=== PATIENT | male | born 1945 | race Caucasian/White ===

== ENCOUNTER → 2016-06-11 | Outpatient (CLI) | payer MEDICARE, OTHER | END | disposition home or self-care (01) | LOC: RADPETMAIN 10:18 | DX: Z53.9 Procedure and treatment not carried out, unspecified reason (principal) ==

== ENCOUNTER 2016-07-25 17:36 | Inpatient (IN) | payer MEDICARE, OTHER ==
[2016-07-25 18:01] LABS: Glucose,Whole Blood 165 mg/dL (75-99)
[2016-07-25] MEDS ORDERED: ACETAMINOPHEN TAB 500 MG TAB PO STA (18:02)
[2016-07-25] MEDS ORDERED: IBUPROFEN 600 MG TAB PO STA (18:02)
--- NOTE | 2016-07-25 18:06 | ED ---
General Adult HPI - General Chief complaint: Fever Stated complaint: Fever Time Seen by Provider: 07/25/16 17:46 Source: patient, family, RN notes reviewed Mode of arrival: EMS Limitations: no limitations - History of Present Illness Initial comments: Patient is a pleasant 71-year-old male presenting to the emergency Department with fever and weakness. Onset of symptoms was yesterday. 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 Patient has had a cough for a couple of days. Patient started not feeling well yesterday. Patient went to [facility] this morning and diagnosed with fever. They did want to keep him however he left AGAINST MEDICAL ADVICE. Patient did have a fall today and was too weak to get in bed. Patient got in bed with family assistance. Patient later got up to use the restroom and was too weak to make it to the bathroom. He did make it with assistance however was too weak to get off the toilet. Patient is drowsy but easily arousable and appropriate. Patient denies head injury. Patient denies any specific complaints other than feeling weak and fatigued. - Related Data Home Medications Medication Instructions Recorded Confirmed Insulin Glargine [Lantus] 42 unit SQ BID 06/06/14 07/25/16 Losartan/Hydrochlorothiazide 1 tab PO HS 06/06/14 07/25/16 [Hyzaar 100-25 Tablet] Acetaminophen Tab [Tylenol Tab] 1,000 mg PO Q6HR PRN 07/25/16 07/25/16 Aspirin 81 mg PO DAILY 07/25/16 07/25/16 INSULIN LISPRO (humaLOG) [HumaLOG] See Protocol SQ TID 07/25/16 07/25/16 Levothyroxine Sodium [Synthroid] 25 mcg PO DAILY 07/25/16 07/25/16 Levothyroxine Sodium [Synthroid] 200 mcg PO DAILY 07/25/16 07/25/16 predniSONE 25 mg PO DAILY 07/25/16 07/25/16 Allergies Allergy/AdvReac Type Severity Reaction Status Date / Time codeine Allergy Confusion Verified 07/25/16 17:44 gabapentin [From Neurontin] Allergy Confusion Verified 07/25/16 17:44 Review of Systems ROS Statement: Those systems with pertinent positive or pertinent negative responses have been documented in the HPI. ROS Other: All systems not noted in ROS Statement are negative. Constitutional: Reports: fever, chills Eyes: Denies: eye pain ENT: Denies: ear pain Respiratory: Reports: cough. Denies: dyspnea Cardiovascular: Denies: chest pain Endocrine: Reports: fatigue Gastrointestinal: Denies: abdominal pain Genitourinary: Denies: dysuria Musculoskeletal: Denies: back pain Skin: Denies: rash Neurological: Reports: weakness Past Medical History Past Medical History: Chest Pain / Angina, CVA/TIA, Diabetes Mellitus, Hyperlipidemia, Hypertension, Renal Disease, Thyroid Disorder Additional Past Medical History / Comment(s): Peripheral neuropathy, stroke 7 weeks ago, no residual effects-hospitalized @[facility], stage 3 kidney disease History of Any Multi-Drug Resistant Organisms: None Reported Past Surgical History: Bowel Resection, Cholecystectomy, Hernia Repair Additional Past Surgical History / Comment(s): Whipple procedure Past Anesthesia/Blood Transfusion Reactions: No Reported Reaction Past Psychological History: Anxiety, Depression Smoking Status: Former smoker Past Alcohol Use History: Occasional Additional Past Alcohol Use History / Comment(s): quit smoking @age of 23, smoked for 13 yrs. Past Drug Use History: Unable to Obtain - Past Family History Mother Family Medical History: Cancer Additional Family Medical History / Comment(s): Lung Father Family Medical History: Cancer Additional Family Medical History / Comment(s): Lung Sister(s) Family Medical History: Cancer Additional Family Medical History / Comment(s): Breast General Exam Limitations: no limitations General appearance: in no apparent distress, other (Drowsy but arousable to voice and light touch) Head exam: Present: atraumatic, normocephalic Eye exam: Present: normal appearance, PERRL ENT exam: Present: normal oropharynx Neck exam: Present: normal inspection Respiratory exam: Present: normal lung sounds bilaterally Cardiovascular Exam: Present: regular rate, normal rhythm GI/Abdominal exam: Present: soft. Absent: distended, tenderness Extremities exam: Present: normal inspection, full ROM. Absent: tenderness Neurological exam: Present: alert, oriented X3. Absent: motor sensory deficit Psychiatric exam: Present: flat affect Skin exam: Present: normal color. Absent: rash Course Vital Signs 07/25/16 07/25/16 07/25/16 17:39 17:57 18:01 Temperature 102.8 F H 102.8 F H Pulse Rate 79 84 Respiratory 20 25 H 24 Rate Blood Pressure 177/81 164/77 O2 Sat by Pulse 91 L 91 L Oximetry 07/25/16 07/25/16 18:39 19:12 Temperature 102.8 F H Pulse Rate 85 86 Respiratory 20 18 Rate Blood Pressure 168/75 187/81 O2 Sat by Pulse 94 L 97 Oximetry EKG Findings - EKG Comments: EKG Findings:: Normal sinus rhythm at 86. MN 146. QRS 98. QT 336. QTc 402. Normal axis. Incomplete right bundle branch block. No acute ST change. Medical Decision Making - Medical Decision Making Patient reevaluated and resting comfortably in bed. Patient is more alert. Patient and family updated on results and plan. Case discussed with Dr. Hayden, who will admit for Dr. Zamora. Patient does not meet sepsis criteria as there is no source of infection. - Lab Data Result diagrams: 07/25/16 17:49 07/25/16 17:49 Lab Results 07/25/16 07/25/16 07/25/16 Range/Units 17:47 17:49 17:49 WBC 10.8 H (3.8-10.6) k/uL RBC 4.06 L (4.30-5.90) m/uL Hgb 12.9 L (13.0-17.5) gm/dL Hct 39.2 (39.0-53.0) % MCV 96.5 (80.0-100.0) fL MCH 31.8 (25.0-35.0) pg MCHC 33.0 (31.0-37.0) g/dL RDW 16.6 H (11.5-15.5) % Plt Count 275 (150-450) k/uL Neutrophils % 94 % Lymphocytes % 2 % Monocytes % 3 % Eosinophils % 0 % Basophils % 0 % Neutrophils # 10.1 H (1.3-7.7) k/uL Lymphocytes # 0.2 L (1.0-4.8) k/uL Monocytes # 0.3 (0-1.0) k/uL Eosinophils # 0.0 (0-0.7) k/uL Basophils # 0.0 (0-0.2) k/uL Anisocytosis Slight Macrocytosis Slight PT (9.0-12.0) sec INR (<1.1) APTT (22.0-30.0) sec Sodium 128 L (137-145) mmol/L Potassium 4.2 (3.5-5.1) mmol/L Chloride 95 L (98-107) mmol/L Carbon Dioxide 26 (22-30) mmol/L Anion Gap 7 mmol/L BUN 24 H (9-20) mg/dL Creatinine 1.13 (0.66-1.25) mg/dL Est GFR (MDRD) Af Amer >60 (>60 ml/min/1.73 sqM) Est GFR (MDRD) Non-Af >60 (>60 ml/min/1.73 sqM) Glucose 174 H (74-99) mg/dL POC Glucose (mg/dL) 165 H (75-99) mg/dL POC Glu Early Childhood Education Instructor ID [place] Plasma Lactic Acid Maldonado (0.7-2.0) mmol/L Calcium 8.5 (8.4-10.2) mg/dL Total Bilirubin 0.8 (0.2-1.3) mg/dL AST 61 H (17-59) U/L ALT 53 (21-72) U/L Alkaline Phosphatase 95 (38-126) U/L Total Protein 6.1 L (6.3-8.2) g/dL Albumin 3.3 L (3.5-5.0) g/dL Urine Color Urine Appearance (Clear) Urine pH (5.0-8.0) Ur Specific [place] (1.001-1.035) Urine Protein (Negative) Urine Glucose (UA) (Negative) Urine Ketones (Negative) Urine Blood (Negative) Urine Nitrite (Negative) Urine Bilirubin (Negative) Urine Urobilinogen (<2.0) mg/dL Ur Leukocyte Esterase (Negative) Urine RBC (0-5) /hpf Urine WBC (0-5) /hpf Ur Squamous Epith Cells (0-4) /hpf Urine Mucus (None) /hpf 07/25/16 07/25/16 07/25/16 Range/Units 17:49 17:49 18:30 WBC (3.8-10.6) k/uL RBC (4.30-5.90) m/uL Hgb (13.0-17.5) gm/dL Hct (39.0-53.0) % MCV (80.0-100.0) fL MCH (25.0-35.0) pg MCHC (31.0-37.0) g/dL RDW (11.5-15.5) % Plt Count (150-450) k/uL Neutrophils % % Lymphocytes % % Monocytes % % Eosinophils % % Basophils % % Neutrophils # (1.3-7.7) k/uL Lymphocytes # (1.0-4.8) k/uL Monocytes # (0-1.0) k/uL Eosinophils # (0-0.7) k/uL Basophils # (0-0.2) k/uL Anisocytosis Macrocytosis PT 10.3 (9.0-12.0) sec INR 1.0 (<1.1) APTT 22.4 (22.0-30.0) sec Sodium (137-145) mmol/L Potassium (3.5-5.1) mmol/L Chloride (98-107) mmol/L Carbon Dioxide (22-30) mmol/L Anion Gap mmol/L BUN (9-20) mg/dL Creatinine (0.66-1.25) mg/dL Est GFR (MDRD) Af Amer (>60 ml/min/1.73 sqM) Est GFR (MDRD) Non-Af (>60 ml/min/1.73 sqM) Glucose (74-99) mg/dL POC Glucose (mg/dL) (75-99) mg/dL POC Glu Early Childhood Education Instructor ID Plasma Lactic Acid Maldonado 1.9 (0.7-2.0) mmol/L Calcium (8.4-10.2) mg/dL Total Bilirubin (0.2-1.3) mg/dL AST (17-59) U/L ALT (21-72) U/L Alkaline Phosphatase (38-126) U/L Total Protein (6.3-8.2) g/dL Albumin (3.5-5.0) g/dL Urine Color Yellow Urine Appearance Cloudy (Clear) Urine pH 7.5 (5.0-8.0) Ur Specific [place] 1.013 (1.001-1.035) Urine Protein Trace H (Negative) Urine Glucose (UA) Trace H (Negative) Urine Ketones Negative (Negative) Urine Blood Negative (Negative) Urine Nitrite Negative (Negative) Urine Bilirubin Negative (Negative) Urine Urobilinogen <2.0 (<2.0) mg/dL Ur Leukocyte Esterase Negative (Negative) Urine RBC <1 (0-5) /hpf Urine WBC <1 (0-5) /hpf Ur Squamous Epith Cells <1 (0-4) /hpf Urine Mucus Rare H (None) /hpf - Radiology Data Radiology results: image reviewed (Chest x-ray shows no acute process) Disposition Clinical Impression: Fever, Weakness Disposition: ADMITTED IP TO THIS HOSP Referrals: Antonio Purdy MD [Primary Care Provider] - 1-2 days Time of Disposition: 19:49
[2016-07-25 18:22] LABS: Anisocytosis Slight; Basophils % (A) 0 %; CH 32.2; CHCM 33.6; Eosinophils % (A) 0 %; HCT 39.2 % (39.0-53.0); HDW 2.44; HGB 12.9 gm/dL (13.0-17.5); Luc % (Auto) 1; Lymphocytes # (A) 0.2 k/uL (1.0-4.8); Lymphocytes % (A) 2 %; MCH 31.8 pg (25.0-35.0); MCV 96.5 fL (80.0-100.0); Macrocytosis Slight; Mean Platelet Volume 8.2; Monocytes # (A) 0.3 k/uL (0-1.0); Monocytes % (A) 3 %; Neutrophils # (A) 10.1 k/uL (1.3-7.7); Neutrophils % (A) 94 %; RBC 4.06 m/uL (4.30-5.90); RDW 16.6 % (11.5-15.5); WBC 10.8 k/uL (3.8-10.6); WBC (Perox) 10.26
[2016-07-25 18:31] LABS: ALT 53 U/L (21-72); AST 61 U/L (17-59); Alkaline Phosphatase 95 U/L (38-126); Anion Gap 7 mmol/L; Blood Urea Nitrogen 24 mg/dL (9-20); Calcium 8.5 mg/dL (8.4-10.2); Carbon Dioxide 26 mmol/L (22-30); Chloride 95 mmol/L (98-107); Glucose 174 mg/dL (74-99); Non-African American GFR(MDRD) >60 (>60 ml/min/1.73 sqM); Potassium 4.2 mmol/L (3.5-5.1); Sodium 128 mmol/L (137-145); Total Bilirubin 0.8 mg/dL (0.2-1.3); Total Protein 6.1 g/dL (6.3-8.2)
[2016-07-25 18:35] LABS: Partial Thromboplastin Time 22.4 sec (22.0-30.0); Prothrombin Time 10.3 sec (9.0-12.0)
[2016-07-25] MEDS: SODIUM CHLORIDE 0.9% 500 ML IV SCH ×2 (18:38→20:24)
[2016-07-25 19:09] LABS: Appearance,Urine Cloudy (Clear); Bilirubin,Urine Negative (Negative); Glucose,Urine (UA) Trace (Negative); Ketones,Urine Negative (Negative); Leukocyte Esterase,Urine Negative (Negative); Mucus,Urine Rare /hpf; Nitrite,Urine Negative (Negative); PH, Urine 7.5 (5.0-8.0); Particle Count 8895; Protein,Urine Trace (Negative); RBC,Urine <1 /hpf (0-5); Specific Gravity,Urine 1.013 (1.001-1.035); Squamous Epithelial Cell,Urine <1 /hpf (0-4); UA Billing (MACRO vs. MICRO) MICRO; Urobilinogen,Urine <2.0 mg/dL (<2.0); WBC,Urine <1 /hpf (0-5)
--- NOTE | 2016-07-25 19:27 | XR ---
EXAMINATION TYPE: XR chest 2V DATE OF EXAM: 07/25/2016 7:13 PM COMPARISON: 06/06/2014 HISTORY: Altered mental status TECHNIQUE: Frontal and lateral views of the chest are obtained. FINDINGS: Heart and mediastinum are normal. Lungs are clear. Diaphragm is normal. There are chest le ads. Bony thorax is intact. IMPRESSION: Normal chest. No change.
[2016-07-25] MEDS ORDERED: NALOXONE 0.4 MG/ML 1 ML VIAL IV PRN (19:49)
[2016-07-25] MEDS ORDERED: IBUPROFEN 400 MG TAB PO PRN (19:49)
[2016-07-25] MEDS ORDERED: ACETAMINOPHEN TAB 325 MG TAB PO PRN (19:49)
[2016-07-25 21:12] LABS: Glucose,Whole Blood 176 mg/dL (75-99)
[2016-07-25] MEDS ORDERED: ALPRAZolam 0.25 MG TAB PO PRN (21:46)
[2016-07-25] MEDS ORDERED: IV VANCOMYCIN PER PHARMACY 1 EACH MISC MISCELLANE PRN (21:54)
[2016-07-25 22:17] LABS: ALT 58 U/L (21-72); AST 80 U/L (17-59); Alkaline Phosphatase 88 U/L (38-126); Anion Gap 7 mmol/L; Blood Urea Nitrogen 25 mg/dL (9-20); Calcium 7.9 mg/dL (8.4-10.2); Carbon Dioxide 25 mmol/L (22-30); Chloride 97 mmol/L (98-107); Glucose 187 mg/dL (74-99); Non-African American GFR(MDRD) >60 (>60 ml/min/1.73 sqM); Sodium 129 mmol/L (137-145); Total Protein 5.6 g/dL (6.3-8.2)
[2016-07-25] MEDS: SODIUM CHLORIDE 0.9% 1,000 ML IV SCH (22:35)
[2016-07-25] MEDS: CEFEPIME 2 GM in SODIUM CHLORIDE 0.9% 50 ML IVPB SCH (22:35)
[2016-07-25] MEDS: HEPARIN SODIUM,PORCINE 5,000 UNIT/ML 1 ML VIAL SQ SCH (22:38)
[2016-07-25 22:58] VITALS: BMI 30.7
[2016-07-25] MEDS ORDERED: VANCOMYCIN 1,250 MG in SODIUM CHLORIDE 0.9% 250 ML IVPB ONE (23:00)
[2016-07-26] MEDS: LEVOTHYROXINE 100 MCG TAB PO SCH (06:21)
[2016-07-26] MEDS: LEVOTHYROXINE 25 MCG TAB PO SCH (06:21)
[2016-07-26 07:11] LABS: Glucose,Whole Blood 306 mg/dL (75-99)
[2016-07-26] MEDS: SODIUM CHLORIDE 0.9% 1,000 ML IV SCH ×4 (07:32→21:28)
[2016-07-26] MEDS: CEFEPIME 2 GM in SODIUM CHLORIDE 0.9% 50 ML IVPB SCH ×3 (07:37→23:31)
[2016-07-26] MEDS: INSULIN LISPRO (humaLOG) 300 UNIT/3 ML VIAL SQ SCH ×4 (07:40→21:20)
[2016-07-26] MEDS: HEPARIN SODIUM,PORCINE 5,000 UNIT/ML 1 ML VIAL SQ SCH ×2 (07:42→21:19)
--- NOTE | 2016-07-26 07:42 | HP ---
DATE OF ADMISSION: DATE OF SERVICE: 07/25/2016 The chief complaints are fever and weakness. HISTORY OF PRESENT ILLNESS: This is a 71-year-old gentleman with a past medical history of CVA, TIA, diabetes mellitus type 2, hypertension, hyperlipidemia, hypothyroidism, peripheral neuropathy, history of bowel resection, cholecystectomy, anxiety, depression, being followed by Dr. Purdy in the outpatient setting also had T-cell lymphoma. The patient is receiving chemotherapy in [facility], 2 cycles have been done. Now currently the patient complaining of high-grade fever, and as well as some weakness and feeling cold. Patient went to [facility] and subsequently signed himself out and the patient came to [facility], admitted for further evaluation and treatment. There is no history of any headache, loss of consciousness, no history of chest pain, palpitations. The past medical history is history of CVA, TIA, history of diabetes mellitus type 2, hypertension, hyperlipidemia, history of renal disorder, history of hypothyroidism, peripheral neuropathy, bowel resection, cholecystectomy. The medications prior to admission include: 1. Humalog scale. 2. Prednisone 25 mg daily. 3. Hyzaar 100/25 p.o. q.h.s. 4. Synthroid 25 mcg p.o. daily and 200 mcg p.o. daily. 5. Lantus 42 units subQ b.i.d. 6. Aspirin 81 mg p.o. daily. 7. Tylenol 1000 mg q.6 p.r.n. Allergies are CODEINE and GABAPENTIN. FAMILY HISTORY: History of lung cancer. SOCIAL HISTORY: No history of current smoking, occasional alcohol intake. Previous history of smoking. REVIEW OF SYSTEMS: ENT: No diminishing hearing or diminished vision. CARDIOVASCULAR: No angina or palpitation. RESPIRATORY: As mentioned earlier. GI: As mentioned earlier. : No dysuria. NERVOUS SYSTEM: No numbness or weakness. ALLERGY/IMMUNOLOGY: No asthma. MUSCULOSKELETAL: As mentioned earlier. DERMATOLOGY: Negative. ENDOCRINE: Hypothyroidism, diabetes mellitus. CONSTITUTIONAL: Negative. ONCOLOGY: Negative. PSYCHIATRY: As mentioned earlier. PHYSICAL EXAM: Patient is alert and oriented x2. Pulse 83, blood pressure 144/73, respirations 18, temperature 102.9, pulse ox 95% on 2 L. HEENT: Conjunctivae normal, oral mucosa moist. NECK: No jugular venous distention. No carotid bruit, no lymph node enlargement. CARDIOVASCULAR: S1, S2, muffled. No S3, no S4. RESPIRATORY: Breath sounds diminished at the bases, a few scattered rhonchi, no crackles. ABDOMEN: Soft, nontender. LEGS: No edema. No swelling. NERVOUS SYSTEM: Higher functions as mentioned, moves all 4 limbs, no focal motor deficits. LYMPHATICS: No lymph node enlargement in the neck, axillae or groin. SKIN: No ulcers, rash or bleeding. Labs are as this time show WBC 10.8, hemoglobin is 12.9, sodium 128, potassium 4.2, Accu-Cheks 165. And AST 61. ASSESSMENT: 1. Possible sepsis and elevated fever for evaluation. 2. T-cell lymphoma on chemotherapy from [facility]. 3. Generalized tiredness and weakness. 4. History of cerebrovascular accident, transient ischemic attack. 5. History of diabetes mellitus type 2. 6. Hypertension, essential. 7. Hyperlipidemia. 8. History of renal disorder. 9. History of hypothyroidism. 10. History of peripheral neuropathy. 11. History of stroke and cerebrovascular accident. 12. History of chronic renal failure. 13. History of bowel resection. 14. History of cholecystectomy. 15. History of hernia repair. 16. History of Whipple's procedure. 17. History of anxiety, depression, not otherwise specified. 18. History of coronary artery disease, stent. 19. Increased WBC. 20. Anemia, normocytic anemia of malignancy. 21. Hyponatremia. 22. Increased AST. 23. Hypoalbuminemia with mild to moderate protein calorie malnutrition. 24. FULL CODE. RECOMMENDATION: In this 71-year-old gentleman who presented with multiple complex medical issues, will monitor the patient closely. Continue with the current medications and symptomatic treatment. I would recommend broad-spectrum IV antibiotics, the blood and urine cultures. Initially chest x-ray did not show acute abnormality. Resume the home medications. Will also obtain hematology/oncology evaluation. Guarded prognosis because of multiple complex medical issues. Discussed with the family and staff who understands. The rest of the home medications will be continued and a copy of this will be forwarded to Dr. Purdy who is the primary physician.
[2016-07-26 08:00] LABS: Anisocytosis Slight; Basophils % (A) 0 %; CH 31.7; CHCM 32.5; Eosinophils % (A) 0 %; HCT 37.1 % (39.0-53.0); HGB 11.9 gm/dL (13.0-17.5); Luc # (Auto) 0.06; Luc % (Auto) 1; Lymphocytes # (A) 0.1 k/uL (1.0-4.8); Lymphocytes % (A) 1 %; MCH 31.4 pg (25.0-35.0); MCHC 32.1 g/dL (31.0-37.0); Macrocytosis Slight; Mean Platelet Volume 8.4; Monocytes # (A) 0.2 k/uL (0-1.0); Monocytes % (A) 2 %; Neutrophils # (A) 8.5 k/uL (1.3-7.7); Neutrophils % (A) 96 %; RBC 3.79 m/uL (4.30-5.90); RDW 16.6 % (11.5-15.5); WBC 8.9 k/uL (3.8-10.6); WBC (Perox) 9.28
[2016-07-26] MEDS ORDERED: VANCOMYCIN 1,250 MG in SODIUM CHLORIDE 0.9% 250 ML IVPB SCH (08:00)
[2016-07-26] MEDS: INSULIN GLARGINE 100 UNIT/ML 10 ML VIAL SQ SCH ×2 (08:00→21:19)
[2016-07-26 08:15] LABS: ALT 99 U/L (21-72); AST 135 U/L (17-59); Alkaline Phosphatase 98 U/L (38-126); Anion Gap 9 mmol/L; Blood Urea Nitrogen 22 mg/dL (9-20); Calcium 8.1 mg/dL (8.4-10.2); Carbon Dioxide 25 mmol/L (22-30); Chloride 97 mmol/L (98-107); Glucose 294 mg/dL (74-99); Non-African American GFR(MDRD) >60 (>60 ml/min/1.73 sqM); Potassium 4.3 mmol/L (3.5-5.1); Sodium 131 mmol/L (137-145); Total Bilirubin 0.9 mg/dL (0.2-1.3); Total Protein 5.4 g/dL (6.3-8.2)
[2016-07-26 08:52] LABS: Manual Review Performed
[2016-07-26] MEDS ORDERED: predniSONE 50 MG TAB PO SCH (09:00)
[2016-07-26] MEDS ORDERED: ASPIRIN 81 MG CHEW PO SCH (09:00)
[2016-07-26] MEDS ORDERED: PANTOPRAZOLE 40 MG/10 ML VIAL IV SCH (09:00)
[2016-07-26 11:41] LABS: Glucose,Whole Blood 257 mg/dL (75-99)
[2016-07-26 12:21] LABS: Hemoglobin A1C 9.8 % (4.2-6.1)
[2016-07-26] MEDS: ONDANSETRON 4 MG/2 ML VIAL IVP PRN ×2 (12:49→23:27)
[2016-07-26] MEDS: METOCLOPRAMIDE 5 MG/ML 2 ML VIAL IVP PRN ×2 (15:47→21:41)
[2016-07-26 17:03] LABS: Glucose,Whole Blood 296 mg/dL (75-99)
[2016-07-26] MEDS: ACETAMINOPHEN IV (For NPO) 1,000 MG in EMPTY BAG 1 BAG IVPB PRN (17:40)
--- NOTE | 2016-07-26 18:12 | P.CONS ---
History of Present Illness - Reason for Consult Consult date: 07/26/16 B-cell lymphoma, treatment with Dr. Winslow at [facility] Requesting physician: Andrew Rouse - Chief Complaint progressive weakness and fever - History of Present Illness Mr. Santos is a pleasant male pt of Dr. Winslow at [facility]. He is currently undergoing treatment for B-cell lymphoma stage II, diagnosed recently as pt is s/p 2 cycles of R-CHOP with neulasta support. Pt states weakness after 1 st cycle, worse this cycle, he had fever with progressive, severe weakness, he is actually due for cycle 3 in 2 days. He denies oral irritation, nausea, chest pain, SOB, cough, post nasal drip, ill contacts, he can have abd pain after eating sometimes but denies diarrhea. No dysuria, hematuria, swelling, rashes or bleeding. Review of Systems All systems: negative Constitutional: Reports as per HPI Past Medical History Past Medical History: Cancer, Chest Pain / Angina, CVA/TIA, Diabetes Mellitus, Hyperlipidemia, Hypertension, Renal Disease, Thyroid Disorder Additional Past Medical History / Comment(s): Peripheral neuropathy, stroke 7 weeks ago, no residual effects-hospitalized @[facility], stage 3 kidney disease, B- Cell Lymphoma-goes to [facility] History of Any Multi-Drug Resistant Organisms: None Reported Past Surgical History: Bowel Resection, Cholecystectomy, Hernia Repair Additional Past Surgical History / Comment(s): Whipple procedure Past Anesthesia/Blood Transfusion Reactions: No Reported Reaction Past Psychological History: Anxiety, Depression Smoking Status: Former smoker Past Alcohol Use History: Occasional Additional Past Alcohol Use History / Comment(s): quit smoking @age of 23, smoked for 13 yrs. Past Drug Use History: Unable to Obtain - Past Family History Mother Family Medical History: Cancer Additional Family Medical History / Comment(s): Lung Father Family Medical History: Cancer Additional Family Medical History / Comment(s): Lung Sister(s) Family Medical History: Cancer Additional Family Medical History / Comment(s): Breast Medications and Allergies Home Medications Medication Instructions Recorded Confirmed Type Insulin Glargine [Lantus] 42 unit SQ BID 06/06/14 07/25/16 History Losartan/Hydrochlorothiazide 1 tab PO HS 06/06/14 07/25/16 History [Hyzaar 100-25 Tablet] Acetaminophen Tab [Tylenol Tab] 1,000 mg PO Q6HR PRN 07/25/16 07/25/16 History Aspirin 81 mg PO DAILY 07/25/16 07/25/16 History INSULIN LISPRO (humaLOG) [HumaLOG] See Protocol SQ TID 07/25/16 07/25/16 History Levothyroxine Sodium [Synthroid] 25 mcg PO DAILY 07/25/16 07/25/16 History Levothyroxine Sodium [Synthroid] 200 mcg PO DAILY 07/25/16 07/25/16 History predniSONE 25 mg PO DAILY 07/25/16 07/25/16 History Allergies Allergy/AdvReac Type Severity Reaction Status Date / Time codeine Allergy Confusion Verified 07/25/16 17:44 gabapentin [From Neurontin] Allergy Confusion Verified 07/25/16 17:44 Physical Exam Vitals: Vital Signs Temp Pulse Pulse Resp BP BP Pulse Ox 07/26/16 14:55 97.9 F 61 16 151/69 95 07/26/16 07:00 97.9 F 69 16 156/70 96 07/25/16 21:09 98.3 F 69 16 122/58 96 07/25/16 20:08 102.9 F H 83 18 144/73 95 07/25/16 19:12 102.8 F H 86 18 187/81 97 07/25/16 18:39 85 20 168/75 94 L 07/25/16 18:01 24 Intake and Output 07/26/16 07/26/16 07/26/16 06:59 14:59 22:59 Intake Total 850 850 Output Total 500 200 Balance 350 650 Intake: IV 850 850 Cefepime 2 gm In Sodium 50 50 Chloride 0.9% 50 ml @ 100 mls/hr IVPB Q8HR [facility] Rx# :[id number] Sodium Chloride 0.9% 1, 550 550 000 ml @ 110 mls/hr IV . Q9H6M [facility] Rx#:[id number] Vancomycin 1,250 mg In 250 250 Sodium Chloride 0.9% 250 ml @ 125 mls/hr IVPB ONCE ONE Rx#:[id number] Output: Urine 500 200 Other: Voiding Method Urinal Urinal Urinal Weight 86.5 kg Patient Weight 07/27/16 06:59 Weight 86.5 kg Pt is very weak, takes 2 providers to hold pt up to listen to breath sounds. - Constitutional General appearance: average body habitus, cooperative, no acute distress - EENT Eyes: anicteric sclerae, EOMI, normal appearance ENT: normal oropharynx - Neck Neck: lymphadenopathy - Respiratory Respiratory: bilateral: CTA - Cardiovascular Heart sounds: normal: S1, S2 leg Peripheral Edema: bilateral: None - Gastrointestinal General gastrointestinal: no absent bowel sounds, no decreased bowel sounds, no distended, no hepatomegaly, no hyperactive bowel sounds, normal bowel sounds, no organomegaly, no rigid, no scaphoid, soft, no splenomegaly, no tenderness, no umbilical hernia, no ventral hernia - Integumentary Integumentary: pale - Neurologic Neurologic: CNII-XII intact - Musculoskeletal Musculoskeletal: generalized weakness - Psychiatric Psychiatric: A&O x's 3, appropriate affect, intact judgment & insight Results CBC & Chem 7: 07/26/16 07:16 07/26/16 07:16 Labs: Abnormal Lab Results - Last 24 Hours (Table) 07/25/16 07/25/16 07/25/16 Range/Units 17:47 17:49 17:49 WBC 10.8 H (3.8-10.6) k/uL RBC 4.06 L (4.30-5.90) m/uL Hgb 12.9 L (13.0-17.5) gm/dL Hct (39.0-53.0) % RDW 16.6 H (11.5-15.5) % Neutrophils # 10.1 H (1.3-7.7) k/uL Lymphocytes # 0.2 L (1.0-4.8) k/uL Sodium 128 L (137-145) mmol/L Chloride 95 L (98-107) mmol/L BUN 24 H (9-20) mg/dL Glucose 174 H (74-99) mg/dL POC Glucose (mg/dL) 165 H (75-99) mg/dL Hemoglobin A1c (4.2-6.1) % Calcium (8.4-10.2) mg/dL AST 61 H (17-59) U/L ALT (21-72) U/L Total Protein 6.1 L (6.3-8.2) g/dL Albumin 3.3 L (3.5-5.0) g/dL Urine Protein (Negative) Urine Glucose (UA) (Negative) Urine Mucus (None) /hpf 07/25/16 07/25/16 07/25/16 Range/Units 18:30 21:11 21:56 WBC (3.8-10.6) k/uL RBC (4.30-5.90) m/uL Hgb (13.0-17.5) gm/dL Hct (39.0-53.0) % RDW (11.5-15.5) % Neutrophils # (1.3-7.7) k/uL Lymphocytes # (1.0-4.8) k/uL Sodium 129 L (137-145) mmol/L Chloride 97 L (98-107) mmol/L BUN 25 H (9-20) mg/dL Glucose 187 H (74-99) mg/dL POC Glucose (mg/dL) 176 H (75-99) mg/dL Hemoglobin A1c (4.2-6.1) % Calcium 7.9 L (8.4-10.2) mg/dL AST 80 H (17-59) U/L ALT (21-72) U/L Total Protein 5.6 L (6.3-8.2) g/dL Albumin 2.9 L (3.5-5.0) g/dL Urine Protein Trace H (Negative) Urine Glucose (UA) Trace H (Negative) Urine Mucus Rare H (None) /hpf 07/26/16 07/26/16 07/26/16 Range/Units 07:09 07:16 07:16 WBC (3.8-10.6) k/uL RBC (4.30-5.90) m/uL Hgb (13.0-17.5) gm/dL Hct (39.0-53.0) % RDW (11.5-15.5) % Neutrophils # (1.3-7.7) k/uL Lymphocytes # (1.0-4.8) k/uL Sodium 131 L (137-145) mmol/L Chloride 97 L (98-107) mmol/L BUN 22 H (9-20) mg/dL Glucose 294 H (74-99) mg/dL POC Glucose (mg/dL) 306 H (75-99) mg/dL Hemoglobin A1c 9.8 H (4.2-6.1) % Calcium 8.1 L (8.4-10.2) mg/dL AST 135 H (17-59) U/L ALT 99 H (21-72) U/L Total Protein 5.4 L (6.3-8.2) g/dL Albumin 2.8 L (3.5-5.0) g/dL Urine Protein (Negative) Urine Glucose (UA) (Negative) Urine Mucus (None) /hpf 07/26/16 07/26/16 07/26/16 Range/Units 07:16 11:27 16:55 WBC (3.8-10.6) k/uL RBC 3.79 L (4.30-5.90) m/uL Hgb 11.9 L (13.0-17.5) gm/dL Hct 37.1 L (39.0-53.0) % RDW 16.6 H (11.5-15.5) % Neutrophils # 8.5 H (1.3-7.7) k/uL Lymphocytes # 0.1 L (1.0-4.8) k/uL Sodium (137-145) mmol/L Chloride (98-107) mmol/L BUN (9-20) mg/dL Glucose (74-99) mg/dL POC Glucose (mg/dL) 257 H 296 H (75-99) mg/dL Hemoglobin A1c (4.2-6.1) % Calcium (8.4-10.2) mg/dL AST (17-59) U/L ALT (21-72) U/L Total Protein (6.3-8.2) g/dL Albumin (3.5-5.0) g/dL Urine Protein (Negative) Urine Glucose (UA) (Negative) Urine Mucus (None) /hpf Microbiology - Last 24 Hours (Table) 07/25/16 18:30 Urine Culture - Preliminary Urine,Voided Chest x-ray: report reviewed Assessment and Plan (1) B-cell lymphoma Narrative/Plan: Pt report stage II disease, adenopathy above diaphragm. He is s/p 2 cycles of - CHOP with neulasta. He will continue f/u and care with his primary Oncologist. Status: Chronic (2) Fever Narrative/Plan: Pancultures ordered, pending finalization, empiric antibiotics ordered, continue. Possibly fever from GCSF and WBC proliferation but cont with current plan of care until final cultures reported, blood cultures negative 48 hours and pt afebrile >24 hours. Status: Acute
--- NOTE | 2016-07-26 19:51 | PN ---
DATE OF SERVICE: 07/26/2016 This 71-year-old gentleman who was admitted with possible sepsis and elevated fever, also had history of T-cell lymphoma recently. The patient evaluated by Oncology. No chest pain, no palpitations. No fever. Patient is complaining of generalized tiredness and weakness. Patient also complaining of some nausea and unable to keep anything down also. The cultures are negative. The white count is normal. Blood sugars are slightly elevated. PAST MEDICAL HISTORY: Reviewed. REVIEW OF SYSTEMS: CARDIOVASCULAR: No angina. RESPIRATORY: As mentioned earlier. GI: As mentioned earlier. : No dysuria. NERVOUS SYSTEM: No numbness or weakness. Current medications are reviewed and include: 1. Tylenol 650 q.6 p.r.n. 2. Xanax 0.5 t.i.d. 3. Aspirin 81 mg. 4. Cefepime. 5. Heparin. 6. Lantus. 7. Synthroid. 8. Reglan. 9. Narcan. 10. Protonix. 11. Prednisone. 12. Restoril. PHYSICAL EXAMINATION: Patient is alert and oriented x3. Pulse is 61, blood pressure 151/69, respiratory rate 16, temperature 97.9, pulse ox 94% on room air. HEENT: Conjunctivae normal. NECK: No jugular venous distention. CARDIOVASCULAR: S1 and S2, muffled. RESPIRATORY: Breath sounds diminished at the bases. A few scattered rhonchi, no crackles. ABDOMEN: Soft, nontender. No mass palpable. LEGS: No edema, no swelling. NERVOUS SYSTEM: No focal deficits. LABS: WBC 8.3, hemoglobin 11, sodium 131 and other labs are noted. ASSESSMENT: 1. Possible sepsis and elevated temperature with fever present on admission. 2. 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 3. Generalized tiredness and weakness. 4. Nausea possible acute gastritis. 5. History of cerebrovascular accident, transient ischemic attack. 6. History of diabetes type 2. 7. Hypertension, essential. 8. Hyperlipidemia. 9. History of renal disorder. 10. History of hypothyroidism. 11. History of peripheral neuropathy. 12. History of stroke and cerebrovascular accident. 13. History of chronic kidney failure. 14. History of bowel resection. 15. History of cholecystectomy. 16. History hernia repair. 17. History of procedure. 18. History of anxiety, depression, not otherwise specified. 19. History of coronary artery disease and stent. 20. Increased WBC. 21. History of anemia, normocytic anemia of chronic malignancy. 22. Hyponatremia. 23. Increased AST. 24. Hypoalbuminemia with mild to moderate protein calorie malnutrition. 25. FULL CODE. RECOMMENDATIONS AND DISCUSSION: I recommend to continue the current medications, continue monitoring and symptomatic treatment. Will keep the patient with clear liquids. The patient is vomiting. Otherwise Dr. Mireles has been consulted. I would also recommend consultation with Dr. Rowell and Dr. Samuel also. See orders for details. Cultures. Further recommendations to follow. Empiric antibiotics. MTDD
[2016-07-26 20:42] LABS: Glucose,Whole Blood 241 mg/dL (75-99)
[2016-07-26] MEDS ORDERED: METHYL SALICYLATE/MENTHOL CREAM 5 OZ TOPICAL PRN (20:45)
[2016-07-26] MEDS: methylPREDNISolone SOD SUCCI 40 MG/ML 1 ML VIAL IV SCH (21:15)
[2016-07-26] MEDS: LOSARTAN-HCTZ 50-12.5 MG 1 EACH TAB PO SCH (21:20)
[2016-07-26] MEDS: TEMAZEPAM 15 MG CAP PO PRN (21:20)
[2016-07-26] MEDS: PANTOPRAZOLE 40 MG/10 ML VIAL IVP SCH (21:21)
--- NOTE | 2016-07-26 22:28 | CT ---
EXAM: CT Abdomen and Pelvis Without Intravenous Contrast CLINICAL HISTORY: Reason: nausea and vomiting TECHNIQUE: Axial computed tomography images of the abdomen and pelvis without intravenous contrast. CTDI is 14 mGy and DLP is 718 mGy-cm. This CT exam was performed using one or more of the following dose reduction techniques: automated exposure control, adjustment of the mA and/or kV according to patient size, and/or use of iterative reconstruction technique. COMPARISON: MRI L-spine 11/20/2014. FINDINGS: Lower thorax: Minimal atelectasis/scarring at the lung bases. ABDOMEN: Liver: Unremarkable. Gallbladder and bile ducts: Cholecystectomy. Pancreas: Partial resection of the pancreas with a residual head/uncinate process. Minimal surrounding fat stranding may be related to postsurgical scarring. If there is concern for pancreatitis, recommend correlation with amylase. Spleen: Splenectomy. Adrenals: Unremarkable. No mass. Kidneys and ureters: Mild nonspecific bilateral perinephric fat stranding. Recommend correlation with urinalysis if concern for pyelonephritis. No hydronephrosis. No radiopaque ureteral stone. Question of a punctate bladder stone versus artifact on series 7 image 61. Stomach and bowel: Bowel anastomosis at the splenic flexure. No bowel obstruction or inflammation. Appendix: No findings to suggest acute appendicitis. PELVIS: Bladder: Unremarkable. No stones. Reproductive: Unremarkable as visualized. ABDOMEN and PELVIS: Intraperitoneal space: Unremarkable. No free air. No significant fluid collection. Bones/joints: Redemonstrated severe degenerative changes of the lower lumbar spine with stable 6 mm retrolisthesis at L4-5 and 6 mm anterolisthesis at L5-S1. Bilateral L5 pars defects. No acute fracture. No dislocation. Soft tissues: Skin thickening and subcutaneous fat stranding/air in the left ventral abdominal wall. Additional small foci of subcutaneous fat stranding. Please correlate clinically. Vasculature: Mild atherosclerotic calcifications of the aorta and major branch vessels. No abdominal aortic aneurysm. Lymph nodes: Unremarkable. No enlarged lymph nodes. IMPRESSION: 1. Partial resection of the pancreas with a residual head/uncinate process. Minimal surrounding fat stranding may be related to postsurgical scarring. If there is concern for pancreatitis, recommend correlation with amylase. 2. Splenectomy. 3. Cholecystectomy. 4. Bowel anastomosis at the splenic flexure. 5. Mild nonspecific bilateral perinephric fat stranding. Recommend correlation with urinalysis if concern for pyelonephritis. No hydronephrosis. No radiopaque ureteral stone. Question of a punctate bladder stone versus artifact on series 7 image 61. 6. Skin thickening and subcutaneous fat stranding/air in the left ventral abdominal wall. Additional small foci of subcutaneous fat stranding. Please correlate clinically.
[2016-07-27] MEDS: ACETAMINOPHEN IV (For NPO) 1,000 MG in EMPTY BAG 1 BAG IVPB PRN ×2 (00:16→11:39)
[2016-07-27] MEDS: VANCOMYCIN 1,500 MG in SODIUM CHLORIDE 0.9% 250 ML IVPB SCH ×2 (00:53→18:22)
[2016-07-27] MEDS ORDERED: SCOPOLAMINE 1.5MG/72HR PATCH TRANSDERM SCH (02:30)
[2016-07-27] MEDS: LORazepam 2 MG/ML SYRINGE IV PRN ×2 (02:48→10:53)
[2016-07-27] MEDS: METOCLOPRAMIDE 5 MG/ML 2 ML VIAL IVP PRN (03:40)
[2016-07-27 07:33] LABS: Glucose,Whole Blood 196 mg/dL (75-99)
[2016-07-27 07:42] LABS: Anisocytosis Slight; Basophils % (A) 0 %; CH 31.9; CHCM 32.8; Eosinophils % (A) 0 %; HDW 2.73; HGB 11.6 gm/dL (13.0-17.5); Luc # (Auto) 0.27; Luc % (Auto) 3; Lymphocytes # (A) 0.3 k/uL (1.0-4.8); Lymphocytes % (A) 3 %; MCH 32.4 pg (25.0-35.0); MCHC 33.1 g/dL (31.0-37.0); MCV 97.7 fL (80.0-100.0); Macrocytosis Slight; Mean Platelet Volume 8.5; Monocytes # (A) 0.2 k/uL (0-1.0); Monocytes % (A) 2 %; Neutrophils # (A) 8.8 k/uL (1.3-7.7); Neutrophils % (A) 91 %; RBC 3.58 m/uL (4.30-5.90); RDW 16.8 % (11.5-15.5); WBC 9.7 k/uL (3.8-10.6); WBC (Perox) 10.36
[2016-07-27 07:50] LABS: Amylase 47 U/L (30-110); Anion Gap 9 mmol/L; Blood Urea Nitrogen 18 mg/dL (9-20); Calcium 8.2 mg/dL (8.4-10.2); Carbon Dioxide 25 mmol/L (22-30); Chloride 99 mmol/L (98-107); Glucose 209 mg/dL (74-99); Magnesium 1.8 mg/dL (1.6-2.3); Non-African American GFR(MDRD) >60 (>60 ml/min/1.73 sqM); Potassium 3.7 mmol/L (3.5-5.1); Sodium 133 mmol/L (137-145)
[2016-07-27] MEDS: LEVOTHYROXINE 100 MCG TAB PO SCH ×2 (08:13→08:32)
[2016-07-27] MEDS: HEPARIN SODIUM,PORCINE 5,000 UNIT/ML 1 ML VIAL SQ SCH ×2 (08:14→22:19)
[2016-07-27] MEDS: LEVOTHYROXINE 25 MCG TAB PO SCH (08:14)
[2016-07-27] MEDS: methylPREDNISolone SOD SUCCI 40 MG/ML 1 ML VIAL IV SCH ×2 (08:15→22:19)
[2016-07-27] MEDS: PANTOPRAZOLE 40 MG/10 ML VIAL IVP SCH ×2 (08:15→22:19)
[2016-07-27] MEDS: INSULIN LISPRO (humaLOG) 300 UNIT/3 ML VIAL SQ SCH ×4 (08:19→23:04)
[2016-07-27] MEDS: INSULIN GLARGINE 100 UNIT/ML 10 ML VIAL SQ SCH ×2 (08:25→23:04)
[2016-07-27] MEDS: ONDANSETRON 4 MG/2 ML VIAL IVP PRN (08:27)
[2016-07-27] MEDS ORDERED: PANTOPRAZOLE 40 MG TABLET PO SCH (09:00)
[2016-07-27] MEDS: CEFEPIME 2 GM in SODIUM CHLORIDE 0.9% 50 ML IVPB SCH ×2 (09:32→16:58)
--- NOTE | 2016-07-27 09:45 | P.CONS ---
History of Present Illness - Reason for Consult Consult date: 07/27/16 Nausea vomiting Requesting physician: Alonso Steele - History of Present Illness 71-year-old gentleman patient Drs. 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 Patient presented with fever T-max 102.9 , weakness. Consultation requested for nausea vomiting. Patient developed nausea over the weekend vomiting several times nonbloody. Patient vomited several times last night with reported left upper quadrant abdominal pain. Hemoglobin 11.9. White count 8.9. Platelet 247. INR 1.0. Sodium 131 potassium 4.3. BUN 22. Creatinine 1.0. History of peptic ulcer disease or reports of hematemesis hematochezia or melena. Computed tomography scan abdomen and pelvis reported postsurgical findings of splenectomy cholecystectomy and partial pancreatectomy. Minimal surrounding fat stranding around the residual pancreatic head uncinate process clinically correlate for concern of pancreatitis if suspected. Preliminary blood cultures no growth. Urine culture no growth. Review of Systems Constitutional: Denies fever, chills, sweats, weight gain, or loss. HEENT: Negative for migraines, blurred vision or loss, earaches, drainage, tinnitus, oral mucosal lesions, dysphagia, or odynophagia. Cardiac: Hypertension. Hyperlipidemia. Negative for chest pain, arrhythmias, or palpitation. Respiratory: Negative for shortness of breath, hemoptysis, cough, or sputum production. Gastrointestinal: See HPI for pertinent findings. Genitourinary: Negative for hematuria, urgency, frequency, polyuria, dysuria, or penile discharge. Musculoskeletal: Negative for muscle aches, swelling, arthritis, and arthralgias. Neurologic: CVA several weeks ago. Nephrology: Chronic kidney disease stage III. Hematology: B-cell lymphoma. Endocrine: Diabetes mellitus. Negative for thyroid problems. Skin: Negative for rash or itching. Psychiatric: History of depression and anxiety All systems: negative (See HPI) Past Medical History Past Medical History: Cancer, Chest Pain / Angina, CVA/TIA, Diabetes Mellitus, Hyperlipidemia, Hypertension, Renal Disease, Thyroid Disorder Additional Past Medical History / Comment(s): Peripheral neuropathy, stroke 7 weeks ago, no residual effects-hospitalized @[facility], stage 3 kidney disease, B- Cell Lymphoma-goes to [facility] History of Any Multi-Drug Resistant Organisms: None Reported Past Surgical History: Bowel Resection, Cholecystectomy, Hernia Repair Additional Past Surgical History / Comment(s): Whipple procedure Past Anesthesia/Blood Transfusion Reactions: No Reported Reaction Past Psychological History: Anxiety, Depression Smoking Status: Former smoker Past Alcohol Use History: Occasional Additional Past Alcohol Use History / Comment(s): quit smoking @age of 23, smoked for 13 yrs. Past Drug Use History: Unable to Obtain - Past Family History Mother Family Medical History: Cancer Additional Family Medical History / Comment(s): Lung Father Family Medical History: Cancer Additional Family Medical History / Comment(s): Lung Sister(s) Family Medical History: Cancer Additional Family Medical History / Comment(s): Breast Medications and Allergies Home Medications Medication Instructions Recorded Confirmed Type Insulin Glargine [Lantus] 42 unit SQ BID 06/06/14 07/25/16 History Losartan/Hydrochlorothiazide 1 tab PO HS 06/06/14 07/25/16 History [Hyzaar 100-25 Tablet] Acetaminophen Tab [Tylenol Tab] 1,000 mg PO Q6HR PRN 07/25/16 07/25/16 History Aspirin 81 mg PO DAILY 07/25/16 07/25/16 History INSULIN LISPRO (humaLOG) [HumaLOG] See Protocol SQ TID 07/25/16 07/25/16 History Levothyroxine Sodium [Synthroid] 25 mcg PO DAILY 07/25/16 07/25/16 History Levothyroxine Sodium [Synthroid] 200 mcg PO DAILY 07/25/16 07/25/16 History predniSONE 25 mg PO DAILY 07/25/16 07/25/16 History Allergies Allergy/AdvReac Type Severity Reaction Status Date / Time codeine Allergy Confusion Verified 07/25/16 17:44 gabapentin [From Neurontin] Allergy Confusion Verified 07/25/16 17:44 Physical Exam Vitals: Vital Signs Temp Pulse Resp BP BP BP BP 07/27/16 00:05 153/72 07/26/16 23:00 97.3 F L 54 L 16 167/76 193/81 180/86 07/26/16 14:55 97.9 F 61 16 151/69 Pulse Ox 07/27/16 00:05 07/26/16 23:00 95 07/26/16 14:55 95 Intake and Output 07/26/16 07/27/16 07/27/16 22:59 06:59 14:59 Intake Total 200 600 Output Total 550 450 Balance -350 150 Intake: IV 600 Cefepime 2 gm In Sodium 50 Chloride 0.9% 50 ml @ 100 mls/hr IVPB Q8HR [facility] Rx# :[id number] Sodium Chloride 0.9% 1, 300 000 ml @ 50 mls/hr IV . Q20H [facility] Rx#:[id number] Vancomycin 1,250 mg In 250 Sodium Chloride 0.9% 250 ml @ 125 mls/hr IVPB ONCE ONE Rx#:[id number] Oral 200 Output: Urine 300 450 Emesis 250 Other: Voiding Method Urinal General appearance: The patient is alert, oriented, in no acute distress. HET: Head is normocephalic and atraumatic. Pupils are equal and reactive. Oropharynx is clear without lesions. No oral thrush. Neck: Supple without lymphadenopathy. Trachea midline. Heart: S1 S2. Regular rate and rhythm. Lungs: No crackles or wheezes are heard. Abdomen: Soft, left upper quadrant mild tenderness, nondistended with bowel sounds. No peritoneal signs. No palpable organomegaly or masses. Extremities: Normal skin color and turgor. No cyanosis, rash, ulceration, clubbing, or edema. Radial and pedal pulses are 2/4 bilaterally. Neurological: No focal deficits. Strength and sensation are grossly intact. Results CBC & Chem 7: 07/27/16 07:13 07/27/16 07:13 Labs: Abnormal Lab Results - Last 24 Hours (Table) 07/26/16 07/26/16 07/26/16 Range/Units 07:16 07:16 07:16 RBC 3.79 L (4.30-5.90) m/uL Hgb 11.9 L (13.0-17.5) gm/dL Hct 37.1 L (39.0-53.0) % RDW 16.6 H (11.5-15.5) % Neutrophils # 8.5 H (1.3-7.7) k/uL Lymphocytes # 0.1 L (1.0-4.8) k/uL Sodium 131 L (137-145) mmol/L Chloride 97 L (98-107) mmol/L BUN 22 H (9-20) mg/dL Glucose 294 H (74-99) mg/dL POC Glucose (mg/dL) (75-99) mg/dL Hemoglobin A1c 9.8 H (4.2-6.1) % Calcium 8.1 L (8.4-10.2) mg/dL AST 135 H (17-59) U/L ALT 99 H (21-72) U/L Total Protein 5.4 L (6.3-8.2) g/dL Albumin 2.8 L (3.5-5.0) g/dL 07/26/16 07/26/16 07/26/16 Range/Units 11:27 16:55 20:41 RBC (4.30-5.90) m/uL Hgb (13.0-17.5) gm/dL Hct (39.0-53.0) % RDW (11.5-15.5) % Neutrophils # (1.3-7.7) k/uL Lymphocytes # (1.0-4.8) k/uL Sodium (137-145) mmol/L Chloride (98-107) mmol/L BUN (9-20) mg/dL Glucose (74-99) mg/dL POC Glucose (mg/dL) 257 H 296 H 241 H (75-99) mg/dL Hemoglobin A1c (4.2-6.1) % Calcium (8.4-10.2) mg/dL AST (17-59) U/L ALT (21-72) U/L Total Protein (6.3-8.2) g/dL Albumin (3.5-5.0) g/dL 07/27/16 Range/Units 07:30 RBC (4.30-5.90) m/uL Hgb (13.0-17.5) gm/dL Hct (39.0-53.0) % RDW (11.5-15.5) % Neutrophils # (1.3-7.7) k/uL Lymphocytes # (1.0-4.8) k/uL Sodium (137-145) mmol/L Chloride (98-107) mmol/L BUN (9-20) mg/dL Glucose (74-99) mg/dL POC Glucose (mg/dL) 196 H (75-99) mg/dL Hemoglobin A1c (4.2-6.1) % Calcium (8.4-10.2) mg/dL AST (17-59) U/L ALT (21-72) U/L Total Protein (6.3-8.2) g/dL Albumin (3.5-5.0) g/dL Microbiology - Last 24 Hours (Table) 07/25/16 17:49 Blood Culture - Preliminary Blood No Growth after 24 hours 07/25/16 18:30 Urine Culture - Final Urine,Voided CT scan - abdomen: report reviewed (Reviewed by Dr. Rowell) Assessment and Plan (1) Nausea & vomiting Narrative/Plan: LUQ abdominal pain possible acute pancreatitis possible subacute pancreatitis with history of cholecystectomy 10 years ago with postoperative complications requiring partial pancreatectomy, splenectomy, and bowel resection secondary to infection. Possible gastritis esophagitis cannot exclude underlying sahil. Status: Acute (2) Fever Status: Acute (3) B-cell lymphoma Status: Chronic Plan: 1. Pancreatic enzymes pending. If unremarkable witll proceed with EGD evaluation. 2. Continue supportive measures and antinausea medications. Will allow a modified clear liquid diet with popsicles Jell-O ice chips sparingly. 3. EGD contingent tomorrow based on today's events and observation. 4. Continue with GI prophylaxis. We'll follow closely with you. The dressing room attendant has discussed the risks, benefits and alternative therapies for the above-mentioned procedure and for both sedation/analgesia as well as necessary blood product administration, if indicated, as they pertain to this patient. The patient has indicated understanding and acceptance of the risks and procedures discussed. Thank you for this kind referral and the opportunity to participate in the care of your patient. This consultation was discussed with Dr. Rowell. The impression and plan of care have been directed as dictated.
[2016-07-27 12:38] LABS: Glucose,Whole Blood 212 mg/dL (75-99)
[2016-07-27] MEDS: SODIUM CHLORIDE 0.9% 1,000 ML IV SCH (14:03)
[2016-07-27 16:54] LABS: Glucose,Whole Blood 205 mg/dL (75-99)
--- NOTE | 2016-07-27 20:27 | PN ---
DATE OF SERVICE: 07/27/2016 This 71-year-old gentleman who was admitted with possible sepsis with fever has recently diagnosed T-cell lymphoma. The patient also has incessant vomiting at this time. Multiple consultants are following the patient closely. CT abdomen and pelvis is showing partial resection of the pancreas with residual head with minimal surrounding fat stranding, splenectomy, cholecystectomy, bowel anastomosis at the splenic flexure. The possibility of pancreatitis is suspected from the CT scan; however, amylase and lipase are normal at this time. The patient is also anxious, per the staff. Multiple consultants, including Hematology/Oncology, are following the patient closely. Past medical history reviewed. REVIEW OF SYSTEMS: CARDIOVASCULAR SYSTEM: No angina, palpitations. RESPIRATORY SYSTEM: As mentioned earlier. GI: As mentioned earlier. : No dysuria, retention. NERVOUS SYSTEM: No numbness or weakness. Current medications are reviewed and include: 1. Tylenol 650 q.6 p.r.n. 2. Xanax 0.25 t.i.d. 3. Cefepime 2 grams q.8. 4. Hyzaar. 5. Heparin. 6. Lantus. 7. Humalog. 8. Synthroid. 9. Ativan. 10. Multivitamins. 11. Solu-Medrol 20 IV b.i.d. 12. Reglan. 13. Narcan. 14. Zofran. 15. Protonix. 16. Restoril. PHYSICAL EXAMINATION: Patient is drowsy after Ativan injection. Pulse 56, blood pressure 160/77, respiration 20, temperature 98.2, pulse ox 97% on room air. HEENT: Conjunctivae normal. NECK: No jugular venous distention. CARDIOVASCULAR SYSTEM: S1, S2 muffled. RESPIRATORY SYSTEM: Breath sounds diminished at the bases. A few scattered rhonchi and crackles. ABDOMEN: Soft, obese. Non-tender. No guarding. No rigidity. No mass palpable. LEGS: No edema. No swelling. NERVOUS SYSTEM: No focal deficit. LABS: WBC 9.7, hemoglobin 11.6, platelets normal at 211. Accu-Cheks are noted. ASSESSMENT: 1. Possible sepsis with elevated temperature with a fever, present on admission. 2. T-cell lymphoma, on chemotherapy from [facility]. 3. Generalized tiredness and weakness. 4. Nausea, possibly acute gastritis. 5. History of cerebrovascular accident, transient ischemic attack. 6. History of diabetes mellitus, type 2. 7. Hypertension, essential. 8. Hyperlipidemia. 9. History of renal disorder. 10. History of hypothyroidism. 11. History of peripheral neuropathy. 12. History of stroke and cerebrovascular accident. 13. History of chronic kidney failure. 14. History of bowel resection. 15. History of cholecystectomy. 16. History of hernia repair. 17. History of anxiety, depression not otherwise specified. 18. History of coronary artery disease and stent. 19. Increased white count. 20. History of anemia, normocytic; anemia of malignancy. 21. Hyponatremia. 22. Increased AST. 23. Hypoalbuminemia with mild to moderate protein-calorie malnutrition. 24. FULL CODE. RECOMMENDATIONS AND DISCUSSION: I recommend to continue with the current medications, continue with the monitoring, symptomatic treatment. Otherwise, at this time I recommend repeat labs. CT scan noted. Gastroenterology evaluation for possible endoscopies. Guarded prognosis because of multiple complex medical issues. Further recommendations to follow.
[2016-07-27 22:04] LABS: Glucose,Whole Blood 196 mg/dL (75-99)
[2016-07-27] MEDS: LOSARTAN-HCTZ 50-12.5 MG 1 EACH TAB PO SCH (22:18)
[2016-07-27] MEDS ORDERED: ACETAMINOPHEN IV (For NPO) 1,000 MG in EMPTY BAG 1 BAG IVPB PRN (22:27)
[2016-07-28] MEDS: CEFEPIME 2 GM in SODIUM CHLORIDE 0.9% 50 ML IVPB SCH ×3 (00:21→17:48)
[2016-07-28] MEDS: SODIUM CHLORIDE 0.9% 1,000 ML IV SCH (00:22)
[2016-07-28] MEDS ORDERED: VANCOMYCIN TROUGH DUE 1 EACH MISC MISCELLANE ONE (07:00)
[2016-07-28] MEDS: LEVOTHYROXINE IVP 100 MCG/5 ML VIAL IV SCH (07:11)
[2016-07-28] MEDS: PANTOPRAZOLE 40 MG/10 ML VIAL IVP SCH ×2 (07:14→21:58)
[2016-07-28] MEDS: methylPREDNISolone SOD SUCCI 40 MG/ML 1 ML VIAL IV SCH ×2 (07:15→21:59)
[2016-07-28] MEDS: HEPARIN SODIUM,PORCINE 5,000 UNIT/ML 1 ML VIAL SQ SCH ×2 (07:19→21:58)
[2016-07-28] MEDS: INSULIN GLARGINE 100 UNIT/ML 10 ML VIAL SQ SCH ×2 (07:19→21:59)
[2016-07-28] MEDS: LOSARTAN-HCTZ 50-12.5 MG 1 EACH TAB PO SCH ×2 (07:20→22:02)
[2016-07-28] MEDS: ONDANSETRON 4 MG/2 ML VIAL IVP PRN (07:22)
[2016-07-28 07:54] LABS: Glucose,Whole Blood 123 mg/dL (75-99)
[2016-07-28] MEDS: LORazepam 2 MG/ML SYRINGE IV PRN (08:13)
[2016-07-28] MEDS: VANCOMYCIN 1,500 MG in SODIUM CHLORIDE 0.9% 250 ML IVPB SCH (08:13)
[2016-07-28] MEDS: INSULIN LISPRO (humaLOG) 300 UNIT/3 ML VIAL SQ SCH ×4 (08:16→21:58)
[2016-07-28 08:23] LABS: Anisocytosis Slight; Aty Lym Flag Slight; CH 32.1; CHCM 33.5; HCT 39.1 % (39.0-53.0); HDW 2.83; HGB 13.1 gm/dL (13.0-17.5); MCH 32.2 pg (25.0-35.0); MCHC 33.4 g/dL (31.0-37.0); MCV 96.3 fL (80.0-100.0); Macrocytosis Slight; Mean Platelet Volume 8.5; RBC 4.06 m/uL (4.30-5.90); RDW 16.7 % (11.5-15.5); WBC 12.3 k/uL (3.8-10.6); WBC (Perox) 11.79
[2016-07-28 08:51] LABS: Anion Gap 10 mmol/L; Blood Urea Nitrogen 16 mg/dL (9-20); Calcium 8.7 mg/dL (8.4-10.2); Carbon Dioxide 26 mmol/L (22-30); Chloride 96 mmol/L (98-107); Glucose 130 mg/dL (74-99); Non-African American GFR(MDRD) >60 (>60 ml/min/1.73 sqM); Potassium 3.5 mmol/L (3.5-5.1); Sodium 132 mmol/L (137-145)
[2016-07-28 10:48] LABS: Add Differential Manual Differential
[2016-07-28 10:50] LABS: Manual Review Performed; Nucleated Red Blood Cells 0 /100 WBC (0-0); Total Cells Counted 100
[2016-07-28 10:51] LABS: Toxic Granulation Present
[2016-07-28 10:52] LABS: Howell-Jolly Bodies Present
[2016-07-28 11:33] LABS: Glucose,Whole Blood 143 mg/dL (75-99)
[2016-07-28] MEDS ORDERED: PROPOFOL 10 MG/ML 20 ML VIAL IV ONE (14:50)
[2016-07-28] MEDS ORDERED: IV FLUID CONTINUATION 1,000 ML IV ONE (14:53)
--- NOTE | 2016-07-28 15:59 | P.PCN ---
Date of Procedure: 07/28/16 Preoperative Diagnosis: Postoperative Diagnosis: Procedure(s) Performed: Procedure: Esophagogastroduodenoscopy and biopsy. Preoperative diagnosis: Nausea and vomiting rule out peptic ulcer disease. Postoperative diagnosis: 1. Small sliding hiatal hernia with distal esophagitis , possibly acid related, but no strictures or Moss's esophagus. 2. Gastritis and duodenitis with no ulcers or gastric outlet obstruction. 3. Multiple biopsies obtained from the duodenum, antrum and esophagus. Preparation and sedation: Was provided by anesthesia. 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 We were asked to see him for nausea and vomiting. Patient developed nausea over the weekend and vomited several times. No blood or coffee grounds. He vomited several times last night with reported left upper quadrant abdominal pain. Hemoglobin 11.9. White count 8.9. Platelet 247. INR 1.0. CT scan of abdomen and pelvis reported postsurgical findings of splenectomy, cholecystectomy and partial pancreatectomy. Minimal surrounding fat stranding around the residual pancreatic head uncinate process. Preliminary blood cultures no growth. Urine culture no growth. The details are summarized in the history and physical and dictated consultation. This evaluation is planned to rule out peptic ulcer disease or other pathology. Procedure: With the patient on his left lateral decubitus position and after informed consent and adequate sedation, I passed the Olympus-GIF 160 video upper endoscope through the cricopharyngeus down the esophagus. GE junction was around 41 cm from the incisors and there was a small sliding hiatal hernia. The distal esophagus showed erythema and thick exudates consistent with reflux esophagitis. There were no strictures or Moss's esophagus. The endoscope was then passed into the stomach which was insufflated with air and inspected in detail including the retroflex view in the cardia. There was some mottling and erythema in the antrum consistent with gastritis but no ulcers, erosions or bleeding. Pyloric channel did not show any ulcers. Duodenal bulb, post bulbar area and descending duodenum showed erythema and friability but no ulcers, erosions or bleeding. I obtained multiple biopsies from the duodenum, antrum and esophagus then the endoscope was withdrawn. The patient tolerated the procedure well. Plan: The patient was reassured. Will allow full fluids, while awaiting the biopsy results and advance as tolerated, and continue supportive and acid suppressive therapy. Implants: Indications for Procedure: Operative Findings: Description of Procedure:
[2016-07-28 16:20] VITALS: RESP 16
[2016-07-28 17:20] LABS: Glucose,Whole Blood 191 mg/dL (75-99)
--- NOTE | 2016-07-28 19:30 | PN ---
DATE OF SERVICE: 07/28/2016 This 71-year-old gentleman who was admitted with possible sepsis also had significant tiredness and weakness and also incessant vomiting also. The patient EGD done by Gastroenterology today. Multiple consultants are following the patient closely. Abdominal and pelvis CAT scan was noted. Pancreatitis was suspected but however, amylase and lipase was normal. Past medical history reviewed. REVIEW OF SYSTEMS: CARDIOVASCULAR: S1, S2 muffled. RESPIRATORY: As mentioned earlier. GASTROINTESTINAL: As mentioned earlier. : No dysuria. CENTRAL NERVOUS SYSTEM: No numbness, generalized weakness. Current medications are reviewed and include: 1. Tylenol 650 q6h p.r.n. 2. Cefepime. 3. Xanax 0.5 t.i.d. 4. Heparin. 5. Lantus. 6. Synthroid 100 mcg IV daily. 7. Solu Medrol 20 IV b.i.d. 8. Reglan. 9. Narcan. 10. Zofran. 11. Protonix. 12. Restoril. 13. Vancomycin. PHYSICAL EXAMINATION: Alert and oriented x3. Pulse 65, blood pressure 150/81, respirations 20, temperature 97.9. Pulse ox 97% on room air. HEENT: Conjunctivae normal. NECK: No jugular venous distention. CARDIOVASCULAR: S1, S2 muffled. RESPIRATORY: Breath sounds diminished at the bases. No rhonchi. No crackles. ABDOMEN: Soft. Mild diffuse discomfort otherwise. Obese. No guarding. No mass palpable. No ascites. LEGS: No edema. No swelling. CENTRAL NERVOUS SYSTEM: No focal deficits. LABS: WBC 12.3, hemoglobin 13.1. Sodium 132, potassium 3.5. ASSESSMENT: 1. Sepsis with elevated temperature, fever, presented on admission, possibly. 2. 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 3. Generalized tiredness and weakness. 4. Incessant vomiting and inability to keep anything down with possible severe gastritis rule out peptic ulcer disease. 5. History of cerebrovascular accident, transient ischemic attack. 6. History of diabetes type 2. 7. Hypertension, essential. 8. Hyperlipidemia. 9. History of renal disorder. 10. History of hypothyroidism. 11. History of peripheral neuropathy. 12. History of stroke and cerebrovascular accident. 13. History of chronic kidney failure. 14. History of bowel resection. 15. History of cholecystectomy. 16. History of hernia repair. 17. History of anxiety and depression, not otherwise specified. 18. History of coronary artery disease and stent. 19. Increased WBC. 20. History of anemia, normocytic anemia of malignancy. 21. Hyponatremia. 22. Increased AST. 23. Hypoalbuminemia with mild to moderate protein calorie malnutrition. 24. FULL CODE. RECOMMENDATIONS AND DISCUSSION: Recommend to continue current medications, continue with monitoring, symptomatic treatment. Otherwise, at this time, I would recommend continue the rest of the medications. EGD by gastroenterology. Otherwise, guarded prognosis because of multiple complex medical issues. Further recommendations to follow. MTDD
[2016-07-28 20:32] LABS: Glucose,Whole Blood 257 mg/dL (75-99)
[2016-07-29] MEDS: CEFEPIME 2 GM in SODIUM CHLORIDE 0.9% 50 ML IVPB SCH ×2 (00:55→08:32)
[2016-07-29] MEDS: TEMAZEPAM 15 MG CAP PO PRN (02:54)
[2016-07-29] MEDS: VANCOMYCIN 1,500 MG in SODIUM CHLORIDE 0.9% 250 ML IVPB SCH (03:44)
[2016-07-29] MEDS: SODIUM CHLORIDE 0.9% 1,000 ML IV SCH (07:28)
[2016-07-29] MEDS: INSULIN LISPRO (humaLOG) 300 UNIT/3 ML VIAL SQ SCH ×2 (08:13→12:48)
[2016-07-29] MEDS: HEPARIN SODIUM,PORCINE 5,000 UNIT/ML 1 ML VIAL SQ SCH (08:14)
[2016-07-29 08:19] LABS: Anion Gap 10 mmol/L; Blood Urea Nitrogen 23 mg/dL (9-20); Calcium 8.5 mg/dL (8.4-10.2); Carbon Dioxide 25 mmol/L (22-30); Chloride 98 mmol/L (98-107); Glucose 203 mg/dL (74-99); Non-African American GFR(MDRD) >60 (>60 ml/min/1.73 sqM); Sodium 133 mmol/L (137-145)
[2016-07-29] MEDS: methylPREDNISolone SOD SUCCI 40 MG/ML 1 ML VIAL IV SCH (08:19)
[2016-07-29] MEDS: LEVOTHYROXINE IVP 100 MCG/5 ML VIAL IV SCH (08:19)
[2016-07-29] MEDS: LOSARTAN-HCTZ 50-12.5 MG 1 EACH TAB PO SCH (08:19)
[2016-07-29] MEDS: PANTOPRAZOLE 40 MG/10 ML VIAL IVP SCH (08:20)
[2016-07-29] MEDS: INSULIN GLARGINE 100 UNIT/ML 10 ML VIAL SQ SCH (08:32)
[2016-07-29 08:39] LABS: Anisocytosis Slight; Basophils # (A) 0.1 k/uL (0-0.2); Basophils % (A) 1 %; CH 31.8; CHCM 33.1; Eosinophils % (A) 0 %; HCT 39.8 % (39.0-53.0); HDW 2.87; HGB 13.4 gm/dL (13.0-17.5); Luc # (Auto) 0.33; Luc % (Auto) 4; Lymphocytes # (A) 2.8 k/uL (1.0-4.8); Lymphocytes % (A) 31 %; MCH 32.5 pg (25.0-35.0); MCHC 33.6 g/dL (31.0-37.0); MCV 96.8 fL (80.0-100.0); Macrocytosis Slight; Mean Platelet Volume 8.7; Monocytes # (A) 0.5 k/uL (0-1.0); Monocytes % (A) 6 %; Neutrophils # (A) 5.3 k/uL (1.3-7.7); Neutrophils % (A) 58 %; RBC 4.12 m/uL (4.30-5.90); RDW 16.5 % (11.5-15.5); WBC (Perox) 9.25
[2016-07-29 09:09] VITALS: BP 130/74; PULSE 71; TEMP 97.4
[2016-07-29] MEDS ORDERED: diphenhydrAMINE 25 MG CAP PO STA (10:49)
[2016-07-29 12:21] LABS: Glucose,Whole Blood 208 mg/dL (75-99)
--- NOTE | 2016-07-30 06:16 | DS ---
DATE OF ADMISSION: 07/25/2016 DATE OF DISCHARGE: 07/29/2016 FINAL DIAGNOSES: 1. Sepsis, elevated temperature, fever, present on admission, improved. 2. Primary undetermined, improved. 3. 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 4. Incessant vomiting and unable to keep anything down with acute esophagitis, gastritis and duodenitis per EGD. 5. Generalized tiredness and weakness. 6. History of cerebrovascular accident, transient ischemic attack. 7. Diabetes mellitus type 2. 8. Hypertension, essential. 9. Hyperlipidemia. 10. History of renal dysfunction, hypothyroidism. 11. History of peripheral neuropathy. 12. History of stroke and cerebrovascular accident. 13. History of chronic kidney failure. 14. History of bowel resection. 15. History of cholecystectomy. 16. History of hernia repair. 17. Anxiety, depression not otherwise specified. 18. History of coronary artery disease and stent. 19. Increased white blood count. 20. History of anemia, normocytic anemia of malignancy. 21. Hyponatremia. 22. Increased AST. 23. Hypoalbuminemia with mild to moderate protein calorie malnutrition. 24. FULL CODE. DISCHARGE DISPOSITION: The patient will be discharged in stable condition with guarded prognosis. HISTORY OF PRESENT ILLNESS: This 71-year-old gentleman with a past medical history of multiple medical problems admitted with possible sepsis, treated with antibiotics. Patient also had incessant nausea and vomiting. Gastritis, esophagitis and duodenitis was diagnosed by gastroenterology. The patient improved with treatment. Currently on exam, vitals are stable. CARDIOVASCULAR: S1, S2 muffled. ABDOMEN: Soft, nontender. Nervous system: No focal deficits. The patient was seen by Dr. Senior also during the hospitalization. Discharge advice and medications: 1. Diet is bland. 2. Activity limited until follow-up. 3. Follow with Dr. Purdy in 1 to 2 days. 4. Follow up with cardiology as recommended. 5. Follow-up with in 2 weeks. 6. Follow up with the patient's hematology/oncologist as recommended. 7. The current medications will be Tylenol 1000 mg q.6 p.r.n. 8. Xanax 0.25 t.i.d. p.r.n. 9. Ecotrin 81 mg p.o. daily after food. 10. Benadryl 10.5 t.i.d. p.r.n. 11. Lantus 42 units subcu b.i.d. 12. Humalog scale as before. 13. Synthroid 200 mcg p.o. daily. 14. Synthroid 25 mcg p.o. daily. 15. Losartan hydrochlorothiazide 1 tablet p.o. q.h.s. 16. Reglan 5 mg a.c. t.i.d. 17. Protonix 40 mg p.o. daily. 18. Scopolamine patch 1.5 q 72 hours. 19. Carafate 1 gram p.o. in the morning and at bedtime. Once again, the patient will be discharged in a stable condition with guarded prognosis. [facility]
[2016-08-01 02:15] LABS: Glucose,Whole Blood 192 mg/dL (75-99)
== END 2016-07-29 13:35 | disposition home or self-care (01) | DRG 872 ==
LOC: EC 17:36 → 5MS5E 19:49 → 5ONC 07-26 18:03
PROVIDERS: ADMIT Internal Medicine; ATTEND Internal Medicine
PROC: 0DB98ZX Excision of Duodenum, Via Natural or Artificial Opening Endoscopic, Diagnostic (ICD-10-PCS; 2016-07-28)
PROC: 0DB78ZX Excision of Stomach, Pylorus, Via Natural or Artificial Opening Endoscopic, Diagnostic (ICD-10-PCS; 2016-07-28)
PROC: 0DB58ZX Excision of Esophagus, Via Natural or Artificial Opening Endoscopic, Diagnostic (ICD-10-PCS; principal; 2016-07-28 13:50)
DX: A41.9 Sepsis, unspecified organism (principal); E44.0 Moderate protein-calorie malnutrition; E11.22 Type 2 diabetes mellitus with diabetic chronic kidney disease; C85.10 Unspecified B-cell lymphoma, unspecified site; E11.42 Type 2 diabetes mellitus with diabetic polyneuropathy; E87.1 Hypo-osmolality and hyponatremia; D63.0 Anemia in neoplastic disease; K21.0 Gastro-esophageal reflux disease with esophagitis; K29.80 Duodenitis without bleeding; K29.00 Acute gastritis without bleeding; I25.10 Atherosclerotic heart disease of native coronary artery without angina pectoris; N18.3 Chronic kidney disease, stage 3 (moderate); K44.9 Diaphragmatic hernia without obstruction or gangrene; I12.9 Hypertensive chronic kidney disease with stage 1 through stage 4 chronic kidney disease, or unspecified chronic kidney disease; R53.1 Weakness; R74.0 Nonspecific elevation of levels of transaminase and lactic acid dehydrogenase [LDH]; E66.9 Obesity, unspecified; E03.9 Hypothyroidism, unspecified; E88.09 Other disorders of plasma-protein metabolism, not elsewhere classified; I45.10 Unspecified right bundle-branch block; E78.5 Hyperlipidemia, unspecified; F41.9 Anxiety disorder, unspecified; F32.9 Major depressive disorder, single episode, unspecified; Z87.891 Personal history of nicotine dependence; Z79.82 Long term (current) use of aspirin; Z79.4 Long term (current) use of insulin; Z95.5 Presence of coronary angioplasty implant and graft; Z90.49 Acquired absence of other specified parts of digestive tract; Z86.73 Personal history of transient ischemic attack (TIA), and cerebral infarction without residual deficits; Z90.411 Acquired partial absence of pancreas; Z90.81 Acquired absence of spleen; Z71.3 Dietary counseling and surveillance; Z87.19 Personal history of other diseases of the digestive system; Z86.19 Personal history of other infectious and parasitic diseases; Z88.5 Allergy status to narcotic agent; Z88.8 Allergy status to other drugs, medicaments and biological substances; Z79.52 Long term (current) use of systemic steroids; Z79.899 Other long term (current) drug therapy; Z80.3 Family history of malignant neoplasm of breast; Z80.1 Family history of malignant neoplasm of trachea, bronchus and lung; Z68.30 Body mass index [BMI] 30.0-30.9, adult; Z92.21 Personal history of antineoplastic chemotherapy; W19.XXXA Unspecified fall, initial encounter
CPT/HCPCS: 36415; 43239; 71020; 74176; 80048; 80053; 80202; 81001; 82150; 83036; 83605; 83690; 83735; 85025; 85610; 85652; 85730; 86140; 87040; 87086; 88305; 88312; 88342; 93005

== ENCOUNTER → 2016-08-13 | Outpatient (CLI) | payer MEDICARE, OTHER ==
--- NOTE | 2016-08-13 16:44 | PE ---
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 Had surger y May 2016. Completed chemotherapy one month ago. TECHNIQUE: Following the intravenous administration of 15.07 mCi of F-18 FDG, whole body images are performed from the top of the skull to the midthigh. Images are reviewed on the computer in the cor onal, axial, and sagittal planes. Reconstructed rotating images are created on independent workstati on and reviewed on the computer. A non-contrast CT is performed in conjunction with the PET scan. COMPARISON: CT abdomen and pelvis July 26, 2016. FINDINGS: HEAD AND NECK: No suspicious hypermetabolic uptake is seen in the head. No suspicious hypermetabolic uptake is seen in the neck. CHEST, MEDIASTINUM, AND HILAR REGION: No suspicious hypermetabolic uptake is seen in the thorax. ABDOMEN AND PELVIS: No suspicious hypermetabolic uptake is seen in the abdomen or pelvis. OSSEOUS STRUCTURES: No suspicious hypermetabolic uptake is seen in osseous structures. OTHER CT: Few surgical clips anterior right lower neck are felt present near axial image 83. There is coronary artery calcification and/or more likely coronary stent in the LAD. Small degree of left-sided gynecomastia is present near axial image 127. Cholecystectomy clips are redemonstrated. Surgical sutures in the colon near level of splenic flexure redemonstrated. Spleen is congenitally or surgically absent redemonstrated. There is marked atrophy of the pancreas or surgical resection redemonstrated. There is mild wall thickening of bladder. There is enlarged heterogeneous prostate gland. Suspect out let obstruction related to BPH. Clinical correlation advised. Bladder diverticulum are suspected on t he left on axial image 247 and on the right on axial image 245. There is grade 1 anterolisthesis of L5 on S1. There is moderate to severe disc space narrowing with s purring and sclerosis posterior L4-L5 level. There is multilevel spurring in the spine noted. IMPRESSION: No suspicious hypermetabolic uptake is seen to suggest recurrent or residual malignancy.
== END | disposition home or self-care (01) ==
LOC: RADPETMAIN 14:06
PROVIDERS: ATTEND Internal Medicine
DX: C85.90 Non-Hodgkin lymphoma, unspecified, unspecified site (principal)
CPT/HCPCS: 78816; A9552

== ENCOUNTER 2016-11-15 07:55 | Day surgery (SDC) | payer MEDICARE, OTHER ==
[2016-11-14 09:50] VITALS: BMI 29.0
[~2016-11-15 07:55] MED LIST: LACTATED RINGERS 1,000 ML IV SCH; LIDOCAINE 1% 20 ML VIAL (10MG/ML) FOR IV START INTRADERMA PRN
[2016-11-15 08:36] VITALS: TEMP 97.8
[2016-11-15] MEDS ORDERED: LIDOCAINE 1% 20 ML VIAL (10MG/ML) FOR IV START INTRADERMA ONE (08:36)
[2016-11-15] MEDS ORDERED: LACTATED RINGERS 1,000 ML IV ONE (08:36)
[2016-11-15 08:48] LABS: Glucose,Whole Blood 96 mg/dL (75-99)
[2016-11-15] MEDS ORDERED: PROPOFOL 10 MG/ML 20 ML VIAL IV ONE (08:59)
[2016-11-15] MEDS ORDERED: LIDOCAINE 1% INJ 10MG/ML (20 ML MDV) ONE (08:59)
[2016-11-15] MEDS ORDERED: GLYCOPYRROLATE 0.2 MG/ML 2 ML VIAL ONE (08:59)
[2016-11-15 09:20] VITALS: RESP 16
--- NOTE | 2016-11-15 09:21 | P.PCN ---
Date of Procedure: 11/15/16 Preoperative Diagnosis: Postoperative Diagnosis: Procedure(s) Performed: Procedure: Colonoscopy and biopsy. Preoperative diagnosis: Change in bowel habits. Postoperative diagnosis: Exam within normal limits. Preparation: HalfLytely prep. Sedation: Was provided by anesthesia. Brief clinical history: The patient is 71-year-old male with history of B-cell lymphoma who has completed chemotherapy and radiation sessions over the last several weeks. He has been having issues with change in bowel habits, mostly in the form of diarrhea, for the last couple months. No bleeding. His prior colonoscopy was more than 10 years ago.. Procedure: With the patient on his left lateral decubitus position and after informed consent and adequate sedation, the perianal area was inspected and it did not show any fissures or fistulas. There were no masses felt on digital rectal examination. The Olympus CFQ 160L video colonoscope was then inserted in the rectum in the usual fashion and advanced to the cecum. The mucosa appeared healthy. No obvious diverticular disease was noted. No polyps or tumors were seen. I obtained biopsies from the right colon then I retroflexed endoscope in the rectum before the endoscope was withdrawn. The patient tolerated the procedure well. Plan: The patient was reassured. Will await biopsy results and make further plans based on his course and biopsy results. He will follow up with you as planned. Implants: Indications for Procedure: Operative Findings: Description of Procedure:
[2016-11-15 09:55] VITALS: BP 126/77; PULSE 70
== END 2016-11-15 10:09 | disposition home or self-care (01) ==
LOC: ORWHC2ENDO 07:55
DX: R19.4 Change in bowel habit (principal); R19.7 Diarrhea, unspecified; C85.10 Unspecified B-cell lymphoma, unspecified site; Z92.21 Personal history of antineoplastic chemotherapy; Z92.3 Personal history of irradiation; I10 Essential (primary) hypertension; E11.42 Type 2 diabetes mellitus with diabetic polyneuropathy; I25.10 Atherosclerotic heart disease of native coronary artery without angina pectoris; Z86.73 Personal history of transient ischemic attack (TIA), and cerebral infarction without residual deficits; Z79.899 Other long term (current) drug therapy; Z79.4 Long term (current) use of insulin; Z88.5 Allergy status to narcotic agent; Z88.8 Allergy status to other drugs, medicaments and biological substances
CPT/HCPCS: 88305; 45380; J2001; J2704

== ENCOUNTER → 2016-12-17 | Outpatient (CLI) | payer MEDICARE, OTHER | END | disposition home or self-care (01) | LOC: RADPETMAIN 10:23 | PROVIDERS: ATTEND Radiology Radiation Oncology | DX: Z53.9 Procedure and treatment not carried out, unspecified reason (principal) ==

== ENCOUNTER → 2016-12-24 | Outpatient (CLI) | payer MEDICARE, OTHER ==
--- NOTE | 2016-12-26 11:21 | PE ---
EXAMINATION TYPE: PET CT fusion skull to thigh DATE OF EXAM: 12/26/2016 CLINICAL HISTORY: B-cell lymphoma left shoulder region completed chemotherapy 2 months ago and comple martinez radiation therapy 3 weeks ago. History of surgery May 2016. TECHNIQUE: Following the intravenous administration of 15.81 mCi of F-18 FDG, whole body images are performed from the skull base to the midthigh. Images are reviewed on the computer in the coronal, axial, and sagittal planes. Reconstructed rotating images are created on independent workstation and reviewed on the computer. A non-contrast CT is performed in conjunction with the PET scan. COMPARISON: Prior PET/CT August 13, 2016. Outside PET CT June 14, 2016. Subsequent study. FINDINGS: SKULL BASE AND NECK: No suspicious hypermetabolic uptake identified with particular attention to lef t neck at level of true vocal cord and thyroid at area of prior hypermetabolic adenopathy. Smaller hy permetabolic lesion right neck prior outside study is not identified. CHEST, MEDIASTINUM, AND HILAR REGION: No suspicious hypermetabolic uptake is seen. ABDOMEN AND PELVIS: There is new mild diffuse uptake involving right colon and transverse colon where there is mild wall thickening, colitis at this level cannot be excluded. No additional areas of susp icious hypermetabolic uptake are identified. OSSEOUS STRUCTURES: No suspicious hypermetabolic uptake is seen. OTHER CT: There is mild calcified plaque at bilateral carotid bulbs redemonstrated. Surgical clips anterior to right thyroid gland are redemonstrated. Bilateral left greater than right gynecomastia is again seen. There is coronary artery calcification and/or coronary stent in the LAD redemonstrated. Atrophic pancreas is redemonstrated. Ascending aorta measures up to 3.7 cm in diameter. Spleen is not visualized and presumed surgically absent. Normal-appearing appendix is seen ascending from cecum. There are surgical sutures near level of sple aidee flexure. Fecal material is mildly prominent throughout the left and sigmoid colon and rectum. Prostate gland is enlarged in size bulging on bladder base, underlying BPH is suspected. Mild concent slade wall thickening to bladder with bilateral outpouching small diverticulum are redemonstrated. Wall thickening is presumed product of enlarged prostate. Spine is straightened on sagittal images. There is multilevel spurring in the spine. There are bilate ral pars defects L5 level with grade 1 anterolisthesis of L5 on S1. There is mild to moderate calcified atherosclerotic change of aorta extending into pelvic branch vess els. IMPRESSION: No suspicious hypermetabolic uptake is seen to suggest recurrent malignancy.
== END | disposition home or self-care (01) ==
LOC: RADPETMAIN 12:34
PROVIDERS: ATTEND Radiology Radiation Oncology
DX: C83.81 Other non-follicular lymphoma, lymph nodes of head, face, and neck (principal)
CPT/HCPCS: 78815; A9552

== ENCOUNTER 2017-07-10 14:14 | Inpatient (IN) | payer MEDICARE ==
[2017-07-10 16:01] LABS: Basophils # (A) 0.1 k/uL (0-0.2); Basophils % (A) 1 %; Eosinophils # (A) 0.2 k/uL (0-0.7); Eosinophils % (A) 3 %; HCT 36.3 % (39.0-53.0); HGB 12.3 gm/dL (13.0-17.5); Lymphocytes # (A) 1.4 k/uL (1.0-4.8); Lymphocytes % (A) 24 %; MCHC 33.8 g/dL (31.0-37.0); MCV 94.9 fL (80.0-100.0); Mean Platelet Volume 7.9; Monocytes # (A) 0.5 k/uL (0-1.0); Monocytes % (A) 9 %; Neutrophils # (A) 3.6 k/uL (1.3-7.7); Neutrophils % (A) 61 %; Platelet Count 307 k/uL (150-450); RBC 3.83 m/uL (4.30-5.90); RDW 14.1 % (11.5-15.5); WBC 5.8 k/uL (3.8-10.6)
[2017-07-10 16:17] LABS: Calcium 9.2 mg/dL (8.4-10.2)
[2017-07-10] MEDS ORDERED: RX INFO: IV CONTRAST WAS GIVEN 1 EACH MISC MISCELLANE PRN (16:31)
--- NOTE | 2017-07-10 17:33 | CT ---
EXAMINATION TYPE: CT soft tissue neck w con DATE OF EXAM: 07/10/2017 5:14 PM COMPARISON: NONE HISTORY: Patient complains of right side ear, face, and neck pain. Patient also experiences dysphagi a. CT DLP: 752.89 mGycm Automated exposure control for dose reduction was used. CONTRAST: CT scan of the neck is performed following with IV Contrast, patient injected with 100 mL of Isovue 3 00. Axial images are obtained, coronal and sagittal reformatted images are reviewed. FINDINGS: There is normal branching pattern of the great vessels on the aortic arch. There is mild atheromatous change. No definite thyroid gland is seen. There are apparent surgical clips in the anterior neck on the right side. There is normal contrast opacification of the carotid arteries and jugular veins. Ep iglottis appears normal. There is no evidence of a pharyngeal mass. Subglottic trachea appears normal . The tonsils and adenoids are within normal limits. I see no significant cervical adenopathy. There are a few anterior and posterior triangle lymph nodes that measure up to 1 cm. Submandibular salivary glands are symmetric. Parotid glands are symmetric. There is fairly normal aeration of the paranasal sinuses. There is normal aeration of the mastoid air cells. There is mild sclerosis at the tip of th e right mastoid process. There is occlusion of the right external auditory canal. I see no focal bone destruction. There are mild spondylotic changes in the lower cervical spine. I see no pathologic enh ancement. IMPRESSION: There is increased soft tissue density at the right external auditory canal that should be correlated with the physical exam. This could be an inflammatory process. Nonspecific relatively s mall cervical lymph nodes.
--- NOTE | 2017-07-10 17:43 | CT ---
EXAMINATION TYPE: CT mastoid wo con DATE OF EXAM: 07/10/2017 COMPARISON: 09/19/2016 HISTORY: Patient complains of right side ear, face, and neck pain. Patient also experiences dysphagi a. CT DLP: 256.63 mGycm. Automated Exposure Control for Dose Reduction was Utilized. TECHNIQUE: CT scan of internal auditory canal is performed without contrast, thin cut axial images ar e obtained, coronal reformatted images are also reviewed. FINDINGS: There is mild sclerosis at the tip of the right mastoid process. The remainder of the masto id sinuses are normally aerated. I see no focal bone destruction. Internal auditory canals are symmet slade. There is no evidence of cerebellopontine angle mass. There is occlusion of most of the right external auditory canal. There is old osteotomy of the left m axillary sinus medial wall. There is normal aeration of the epitympanic recess bilaterally. CONCLUSION: There is almost complete occlusion of the middle and lateral aspect of the right external auditory ca nal that could relate to an otitis externa. No evidence of osteomyelitis. Mild sclerosis at the tip o f the right mastoid process consistent with old inflammatory disease. This is stable compared to CT s can of 09/19/2016. External auditory canal abnormality is new compared to old CT scan.
[2017-07-10] MEDS ORDERED: PIPERACILLIN-TAZOBACTAM 3.375 GM in DEXTROSE/WATER 1 50ML.BAG IVPB STA (17:52)
[2017-07-10] MEDS ORDERED: LEVOFLOXACIN 750MG-D5W PMX 750 MG in DEXTROSE/WATER 1 150ML.BAG IVPB STA (17:52)
[2017-07-10] MEDS ORDERED: CIPROFLOXACIN-DEXAMETH 0.3-0.1% DROPS 7.5 ML BTL RIGHT EAR STA (17:55)
--- NOTE | 2017-07-10 17:55 | ED ---
ENT HPI - General Chief complaint: ENT Stated complaint: ear/facial pain Time Seen by Provider: 07/10/17 16:16 Source: patient, RN notes reviewed Mode of arrival: ambulatory Limitations: no limitations - History of Present Illness Initial comments: 72-year-old male present emergency from for right ear pain. He states his has been present over the last 2-3 weeks progressively getting worse. Patient has been on 3 different antibiotics, eardrops. He states Luis Miguel is still getting worse. He was last seen at [facility] placed on azithromycin. Patient states that is not helping. He does have purulent drainage. Patient states that this pain in the front and the back of his ear. He states that he cannot hear out of his right ear. Patient is a diabetic. Patient reports fever. - Related Data Home Medications Medication Instructions Recorded Confirmed Insulin Glargine [Lantus] 30 unit SQ DAILY 06/06/14 07/10/17 Losartan/Hydrochlorothiazide 1 tab PO DAILY 06/06/14 07/10/17 [Hyzaar 100-25 Tablet] INSULIN LISPRO (humaLOG) [humaLOG] See Protocol SQ TID 07/25/16 07/10/17 Azithromycin [Zithromax Z-pack] See Taper PO DAILY 07/10/17 07/10/17 Levothyroxine Sodium [Synthroid] 250 mcg PO DAILY 07/10/17 07/10/17 Allergies Allergy/AdvReac Type Severity Reaction Status Date / Time codeine AdvReac Confusion Verified 07/10/17 16:37 gabapentin [From Neurontin] AdvReac Confusion Verified 07/10/17 16:37 Review of Systems ROS Statement: Those systems with pertinent positive or pertinent negative responses have been documented in the HPI. ROS Other: All systems not noted in ROS Statement are negative. Past Medical History Past Medical History: Cancer, Chest Pain / Angina, CVA/TIA, Diabetes Mellitus, Hypertension, Thyroid Disorder Additional Past Medical History / Comment(s): Peripheral neuropathy, B-Cell Lymphoma-, DENIES RENAL DISEASE History of Any Multi-Drug Resistant Organisms: None Reported Past Surgical History: Bowel Resection, Cholecystectomy, Heart Catheterization With Stent, Hernia Repair Additional Past Surgical History / Comment(s): Whipple procedure, SPLEEN REMOVED AND 1/2 OF PANCREAS REMOVED Past Anesthesia/Blood Transfusion Reactions: No Reported Reaction Date of Last Stent Placement:: 2015 Past Psychological History: Anxiety, Depression Smoking Status: Former smoker Past Alcohol Use History: Occasional Past Drug Use History: None Reported - Past Family History Mother Family Medical History: Cancer Additional Family Medical History / Comment(s): Lung Father Family Medical History: Cancer Additional Family Medical History / Comment(s): Lung Sister(s) Family Medical History: Cancer Additional Family Medical History / Comment(s): Breast General Exam Limitations: no limitations General appearance: alert, in no apparent distress Head exam: Present: atraumatic, normocephalic, normal inspection Eye exam: Present: normal appearance, PERRL, EOMI. Absent: scleral icterus, conjunctival injection, periorbital swelling ENT exam: Present: normal oropharynx, mucous membranes moist, other (Tenderness of the. per/Postauricular region). Absent: TM's normal bilaterally (Right TM occluded secondary to edema of the external auditory canal), normal external ear exam (9 drainage and edema noted of the right EAC) Neck exam: Present: normal inspection, full ROM, lymphadenopathy. Absent: tenderness, meningismus Respiratory exam: Present: normal lung sounds bilaterally. Absent: respiratory distress, wheezes, rales, rhonchi, stridor Cardiovascular Exam: Present: regular rate, normal rhythm, normal heart sounds. Absent: systolic murmur, diastolic murmur, rubs, gallop, clicks Course Vital Signs 07/10/17 15:08 Temperature 98.3 F Pulse Rate 80 Respiratory 18 Rate Blood Pressure 149/69 O2 Sat by Pulse 96 Oximetry Medical Decision Making - Medical Decision Making 72-year-old male presented unresponsive for right ear pain. Patient will be admitted to the hospital for malignant otitis externa failed outpatient treatment. Patient was started on Levaquin, Zosyn and ciprofloxacin eardrops. - Lab Data Result diagrams: 07/10/17 15:49 07/10/17 15:49 Lab Results 07/10/17 07/10/17 Range/Units 15:49 15:49 WBC 5.8 (3.8-10.6) k/uL RBC 3.83 L (4.30-5.90) m/uL Hgb 12.3 L (13.0-17.5) gm/dL Hct 36.3 L (39.0-53.0) % MCV 94.9 (80.0-100.0) fL MCH 32.0 (25.0-35.0) pg MCHC 33.8 (31.0-37.0) g/dL RDW 14.1 (11.5-15.5) % Plt Count 307 (150-450) k/uL Neutrophils % 61 % Lymphocytes % 24 % Monocytes % 9 % Eosinophils % 3 % Basophils % 1 % Neutrophils # 3.6 (1.3-7.7) k/uL Lymphocytes # 1.4 (1.0-4.8) k/uL Monocytes # 0.5 (0-1.0) k/uL Eosinophils # 0.2 (0-0.7) k/uL Basophils # 0.1 (0-0.2) k/uL Sodium 142 (137-145) mmol/L Potassium 4.0 (3.5-5.1) mmol/L Chloride 103 (98-107) mmol/L Carbon Dioxide 24 (22-30) mmol/L Anion Gap 15 mmol/L BUN 24 H (9-20) mg/dL Creatinine 1.10 (0.66-1.25) mg/dL Est GFR (CKD-EPI)AfAm 76 (>60 ml/min/1.73 sqM) Est GFR (CKD-EPI)NonAf 66 (>60 ml/min/1.73 sqM) Glucose 290 H (74-99) mg/dL Calcium 9.2 (8.4-10.2) mg/dL Disposition Clinical Impression: Malignant otitis externa of right ear, Failure of outpatient treatment Disposition: ADMITTED IP TO THIS [facility] Condition: Stable Referrals: Antonio Purdy MD [Primary Care Provider] - 1-2 days
[2017-07-10] MEDS ORDERED: NALOXONE 0.4 MG/ML 1 ML VIAL IV PRN (17:56)
[2017-07-10] MEDS ORDERED: HYDROcodone/APAP 5-325MG 1 EACH TAB PO PRN (17:57)
[2017-07-10 20:39] LABS: Glucose,Whole Blood 282 mg/dL (75-99)
[2017-07-10] MEDS: IBUPROFEN 600 MG TAB PO PRN (20:48)
[2017-07-10] MEDS: INSULIN ASPART 100 UNIT/ML 1 ML 10 ML VIAL SQ SCH (21:57)
[2017-07-11] MEDS: PIPERACILLIN-TAZOBACTAM 3.375 GM in DEXTROSE/WATER 1 50ML.BAG IVPB SCH ×3 (05:18→20:27)
[2017-07-11] MEDS: LEVOTHYROXINE 125 MCG TAB PO SCH (05:19)
[2017-07-11] MEDS: IBUPROFEN 600 MG TAB PO PRN ×3 (05:25→22:43)
--- NOTE | 2017-07-11 06:33 | HP ---
HISTORY AND PHYSICAL DATE OF SERVICE: 07/10/2017 CHIEF COMPLAINT: Right ear and facial pain. HISTORY OF PRESENT ILLNESS: This 72-year-old gentleman with a past medical history of diabetes mellitus, hypertension, hypothyroidism, peripheral neuropathy with B-cell lymphoma being followed by Dr. Purdy in the outpatient setting was complaining of right ear pain and some discharge for the last 2 to 3 weeks which is progressively getting worse. The patient is on 3 different antibiotics and ear drops. The patient was last seen at [facility] and was started on azithromycin. Because of lack of improvement, the patient came to [facility] and possibility of suspected. The patient admitted for further evaluation and treatment. Blood sugar is 282. The patient is started on broad-spectrum IV antibiotics. There is no history of any fever, rigors or chills. No history of any headache, loss of consciousness or seizures. A soft tissue neck CAT scan was done which showed increased soft tissue density in the right external auditory canal. Otherwise a head and mastoid CT was also done and showed some otitis externa and no evidence of osteomyelitis. PAST MEDICAL HISTORY: History of diabetes mellitus, hypertension, hypothyroidism, peripheral neuropathy, B- cell lymphoma, bowel resection, cholecystectomy, CAD, stent. MEDICATIONS: Home medications are: 1. Hyzaar 1 p.o. daily. 2. Synthroid 250 mcg p.o. daily. 3. Lantus 30 subcu daily. 4. Humalog a.c. t.i.d. 5. Zithromax 500 daily. ALLERGIES: CODEINE and GABAPENTIN. FAMILY HISTORY: History of lung cancer in the family. SOCIAL HISTORY: Previous history of smoking. No history of current smoking or alcohol intake. REVIEW OF SYSTEMS: ENT: As mentioned earlier. CARDIOVASCULAR SYSTEM: No angina. RESPIRATORY SYSTEM: No cough. GI: No nausea. : No dysuria. NERVOUS SYSTEM: No numbness, weakness. ALLERGY/IMMUNOLOGY: No history of asthma. MUSCULOSKELETAL: As mentioned earlier. HEMATOLOGY/ONCOLOGY: As mentioned earlier. ENDOCRINE: Diabetes, hypothyroidism. CONSTITUTIONAL: As mentioned earlier. DERMATOLOGY: Negative. RHEUMATOLOGY: Negative. PSYCHIATRY: As mentioned earlier. PHYSICAL EXAMINATION: The patient is alert, oriented x3. Pulse 62, blood pressure 169/77, respirations 16, temperature 98.7, pulse ox 98% on room air. HEENT: Conjunctivae normal. Oral mucosa moist. Neck is no jugular venous distention. No carotid bruit. No lymph node enlargement. CARDIOVASCULAR: S1, S2 muffled. No S3 or S4. RESPIRATORY: Breath sounds diminished at the bases. No rhonchi, no crackles. ABDOMEN: Soft, nontender. No mass palpable. LEGS: No edema, no swelling. NERVOUS SYSTEM: Higher function as mentioned earlier. Moves all 4 limbs. No focal motor or sensory deficits. LYMPHATICS: No lymphadenopathy of the neck, axillae or groin. SKIN: No ulcer, rash or bleeding. EXAMINATION OF THE RIGHT EAR: Painful, significant discharge present and also tender. LYMPH NODES: Small lymph nodes palpable in the neck. LABS: Labs are at this time WBC 5.8, hemoglobin 12.3. ASSESSMENT: 1. Severe external otitis with failure of outpatient treatment to rule out malignant external otitis. 2. Diabetes mellitus type 2. 3. History of cerebrovascular accident, transient ischemic attack. 4. Hypertension. 5. Hypothyroidism. 6. History of peripheral neuropathy. 7. History of B-cell lymphoma. 8. History of cholecystectomy. 9. History of coronary artery disease, stent. 10.History of Whipple's procedure. 11.History of splenectomy. 12.History of anxiety, depression. RECOMMENDATION AND DISCUSSION: This 72-year-old gentleman who presented with multiple complex medical issues, will monitor the patient closely, continue the current medications and symptomatic treatment, broad-spectrum IV antibiotics. Otherwise we will get ENT evaluation as well as Infectious Disease evaluation. I would also recommend DVT prophylaxis and consultation with Dr. Senior and continue to monitor. Local cultures also have been advised. Repeat labs will be ordered. Home medications are reconciled. The prognosis guarded. Further recommendations to follow. A copy of dictation forwarded to Dr. Purdy who is the primary physician. DVT prophylaxis and proton pump inhibitors. MMODL / IJN: [id number] / [facility]
[2017-07-11 07:13] LABS: Glucose,Whole Blood 213 mg/dL (75-99)
[2017-07-11] MEDS: PANTOPRAZOLE 40 MG TABLET PO SCH (08:18)
[2017-07-11] MEDS: HEPARIN SODIUM,PORCINE 5,000 UNIT/ML 1 ML VIAL SQ SCH ×2 (08:18→20:27)
[2017-07-11] MEDS: INSULIN ASPART 100 UNIT/ML 1 ML 10 ML VIAL SQ SCH ×4 (08:18→20:42)
[2017-07-11] MEDS: LOSARTAN-HCTZ 50-12.5 MG 1 EACH TAB PO SCH (08:18)
[2017-07-11] MEDS: INSULIN DETEMIR 100 UNIT/ML 10 ML VIAL SQ SCH (08:19)
[2017-07-11] MEDS ORDERED: CIPROFLOXACIN-DEXAMETH 0.3-0.1% DROPS 7.5 ML BTL RIGHT EAR SCH (09:00)
[2017-07-11 12:33] LABS: Glucose,Whole Blood 314 mg/dL (75-99)
[2017-07-11] MEDS ORDERED: VANCOMYCIN IV PER PHARMACY 1 EACH MISC MISCELLANE PRN (13:27)
--- NOTE | 2017-07-11 16:09 | CONS ---
CONSULTATION DATE OF SERVICE: 07/11/2017. REASON FOR CONSULTATION: Malignant otitis externa. HISTORY OF PRESENT ILLNESS: The patient is a 72-year-old male started having a problem with the right ear that initially started with pain about 3 weeks ago. The patient said he was traveling at the time and was in [place] when he started having symptoms. The patient had been seen in the outpatient setting by multiple physicians and has been treated with 2 different courses of antibiotic. Initial one was amoxicillin and the repeat one was the Zithromax. The patient said he tried to get into an ENT however could not get an appointment. With pain subsequently getting worse in the right ear, described to more of a throbbing pain almost 7 to 8/10, and no radiation. The patient said when he put his finger in his external ear he can feel some drainage, but nothing is pouring out. The patient denies having any nausea or vomiting. He did have some chills but no high- grade fever. With these symptoms the patient presented to the [facility] ER yesterday afternoon. The patient did have a CT of the mastoid and neck which shows almost complete occlusion of the middle and lateral aspect of the right external auditory canal externa. No evidence of osteomyelitis. The patient did have cultures obtained from the right ear. The patient did not have any fever and no elevated white count. The patient was started on Zosyn and Levaquin. Infectious Disease was consulted in addition to the ENT for further recommendation regarding antibiotic therapy for possibility of malignant otitis externa. The patient does have underlying history of diabetes. REVIEW OF SYSTEMS: CONSTITUTIONAL: Positive for weakness and some chills. Denies any high-grade fever. EYES: No complaint. ENT: As per HPI. RESPIRATORY: No complaint. CARDIOVASCULAR: No complaint. GENITOURINARY: No complaint. GASTROINTESTINAL: No complaint. MUSCULOSKELETAL: No complaint. INTEGUMENTARY: No complaint. PSYCHOLOGICAL: No complaint. ENDOCRINE: No complaint. NEUROLOGIC: No complaint. PAST MEDICAL HISTORY: Significant for diabetes mellitus, hypertension, hypothyroidism, CVA, TIA, peripheral neuropathy, B-cell lymphoma. PAST SURGICAL HISTORY: Bowel resection, cholecystectomy, PTCA with stent. Hernia repair. Whipple procedure, stain removed. SOCIAL HISTORY: Remote history of smoking previously. No drinking or drug use. FAMILY HISTORY: Mother with history of lung cancer. Father history of lung cancer. A sister with a history of breast cancer. ALLERGIES: CODEINE AND NEURONTIN. MEDICATION: Include the patient is currently on Colver, Hyzaar, heparin, Motrin, NovoLog, Levemir, Synthroid, Narcan, Protonix, pip-tazobactam and Levaquin. EXAMINATION: Blood pressure is 152/72 with a pulse of 65. Temperature 97.5. He is 95% on room air. General description is an elderly male lying in bed in no distress. No tachypnea or accessory muscle of respiration use. HEENT: Shows slight pallor. No scleral icterus. Oral mucosa membrane is dry. No pharyngeal erythema or thrush. NECK: Trachea is central. No thyromegaly. LUNGS: Unlabored breathing. Clear to auscultation anteriorly. No wheeze or crackle. HEART: S1, S2. Regular rate and rhythm. ABDOMEN: Soft, no tenderness, no guarding or rigidity. EXTREMITIES: No edema feet. SKIN EXAMINATION: no rash or mass palpable. Examination of the right external auditory canal: No swelling or inflammation of the external ear was noticed or any mastoid tenderness. LABS: Hemoglobin is 12.8, white count 5.8, BUN of 24, creatinine 1.10. Cultures from the ER are currently pending. CT report as mentioned above. DIAGNOSTIC IMPRESSION AND PLAN: Patient admitted to the hospital with right ear pain, swelling and drainage. The patient did have a CT suggestive of a otitis externa with no evidence of any osteomyelitis failing outpatient amoxicillin and Zithromax therapy. The patient does have underlying diabetes, will need to cover for the resistant gram positive as well as gram-negative pathogen. PLAN: 1. The patient will need evaluation by ENT to see the extent of this disease and whether he needs any drainage procedure at which time deep culture should be obtained both aerobic and anaerobic. 2. We will keep the patient on Zosyn, however, will add vancomycin pharmacy to dose and discontinue Levaquin. 3. Depending upon his clinical response as well as cultures, will adjust medication further if needed. Family present at bedside. Questions were answered. MMODL / IJN: [id number] /
--- NOTE | 2017-07-11 16:24 | P.CONS ---
History of Present Illness - Reason for Consult Consult date: 07/11/17 history of large B-cell lymphoma. Otitis externa - History of Present Illness the patient is a 72-year-old gentleman, known to us peripherally, from a previous consult done in 2017. He has a history of stage II large B- cell lymphoma, and was treated with chemotherapy under the care of Dr. Moreland at the [facility]. After completion of chemotherapy he had involved field radiation locally under the care of Dr. Magdaleno, completing treatment in around 02/19. Imaging studies subsequently have shown complete remission. The patient had developed right ear pain, with decreased hearing and some drainage, about 3 weeks prior to this admission. He has had a 2-3 courses of antibiotics as an outpatient, without improvement. Symptoms are actually continued to progress and he developed swelling of the right side of his face and right upper neck. He was also experiencing some difficulty in swallowing. He denied overt fevers or chills. He was therefore admitted for further management. Consult was placed for further evaluation and recommendations. Review of Systems Constitutional: Reports fatigue Eyes: denies blurred vision, denies pain Ears: right: decreased hearing, ear discharge, earache Ears, nose, mouth and throat: Reports as per HPI, Reports swelling in throat Cardiovascular: Denies chest pain, Denies shortness of breath Respiratory: Denies cough Gastrointestinal: Denies abdominal pain, Denies diarrhea, Denies nausea, Denies vomiting Genitourinary: Reports as per HPI Musculoskeletal: Reports as per HPI Integumentary: Denies pruritus, Denies rash Neurological: Denies numbness, Denies weakness Psychiatric: Denies anxiety, Denies depression Endocrine: Denies fatigue, Denies weight change Hematologic/Lymphatic: Reports as per HPI Past Medical History Past Medical History: Cancer, Chest Pain / Angina, CVA/TIA, Diabetes Mellitus, Hypertension, Thyroid Disorder Additional Past Medical History / Comment(s): Peripheral neuropathy, B-Cell Lymphoma-, DENIES RENAL DISEASE History of Any Multi-Drug Resistant Organisms: None Reported Past Surgical History: Bowel Resection, Cholecystectomy, Heart Catheterization With Stent, Hernia Repair Additional Past Surgical History / Comment(s): Whipple procedure, SPLEEN REMOVED AND 1/2 OF PANCREAS REMOVED ,colonoscopy, bowel sx d/t obstruction, heart cath w/2 stents. Past Anesthesia/Blood Transfusion Reactions: No Reported Reaction Date of Last Stent Placement:: 2015 Smoking Status: Former smoker - Past Family History Mother Family Medical History: Cancer Additional Family Medical History / Comment(s): Lung Father Family Medical History: Cancer Additional Family Medical History / Comment(s): Lung Sister(s) Family Medical History: Cancer Additional Family Medical History / Comment(s): Breast Medications and Allergies Home Medications Medication Instructions Recorded Confirmed Type Insulin Glargine [Lantus] 30 unit SQ DAILY 06/06/14 07/10/17 History Losartan/Hydrochlorothiazide 1 tab PO DAILY 06/06/14 07/10/17 History [Hyzaar 100-25 Tablet] INSULIN LISPRO (humaLOG) [humaLOG] See Protocol SQ TID 07/25/16 07/10/17 History Azithromycin [Zithromax Z-pack] See Taper PO DAILY 07/10/17 07/10/17 History Levothyroxine Sodium [Synthroid] 250 mcg PO DAILY 07/10/17 07/10/17 History Allergies Allergy/AdvReac Type Severity Reaction Status Date / Time codeine AdvReac Confusion Verified 07/10/17 21:16 gabapentin [From Neurontin] AdvReac Confusion Verified 07/10/17 21:16 Physical Exam Vitals: Vital Signs Temp Pulse Pulse Resp BP BP Pulse Ox 07/11/17 05:45 97.5 F L 63 16 144/74 93 L 07/10/17 23:00 98.7 F 62 16 169/77 96 07/10/17 19:53 65 18 173/84 97 07/10/17 19:09 98.9 F 69 18 157/81 99 07/10/17 15:08 98.3 F 80 18 149/69 96 Intake and Output 07/10/17 07/11/17 07/11/17 22:59 06:59 14:59 Other: Voiding Method Toilet # Voids 1 2 Weight 81.647 kg - Constitutional General appearance: no acute distress - EENT Eyes: EOMI, PERRLA - Neck Swelling and tenderness involving the right upper neck and right side of face anterior to ear - Respiratory Respiratory: bilateral: CTA - Cardiovascular Rhythm: regular Heart sounds: normal: S1, S2 - Gastrointestinal General gastrointestinal: normal bowel sounds, soft - Integumentary Integumentary: normal - Neurologic Neurologic: CNII-XII intact - Musculoskeletal Musculoskeletal: strength equal bilaterally - Psychiatric Psychiatric: A&O x's 3, appropriate affect Results CBC & Chem 7: 07/10/17 15:49 07/10/17 15:49 Labs: Abnormal Lab Results - Last 24 Hours (Table) 07/10/17 07/10/17 07/10/17 Range/Units 15:49 15:49 20:37 RBC 3.83 L (4.30-5.90) m/uL Hgb 12.3 L (13.0-17.5) gm/dL Hct 36.3 L (39.0-53.0) % BUN 24 H (9-20) mg/dL Glucose 290 H (74-99) mg/dL POC Glucose (mg/dL) 282 H (75-99) mg/dL 07/11/17 07/11/17 Range/Units 07:08 12:29 RBC (4.30-5.90) m/uL Hgb (13.0-17.5) gm/dL Hct (39.0-53.0) % BUN (9-20) mg/dL Glucose (74-99) mg/dL POC Glucose (mg/dL) 213 H 314 H (75-99) mg/dL Microbiology - Last 24 Hours (Table) 07/11/17 00:01 Ear Culture - Preliminary Ear - Right Comments: report of soft tissue neck CT and mastoid CT reviewed Assessment and Plan (1) Malignant otitis externa of right ear Narrative/Plan: The patient is presented with severe otitis externa, that has failed outpatient treatment. He is currently on IV antibiotics. This does not appear to be directly related in any way to his history of malignancy. He has not had any systemic therapy for several months and his counts are within the normal range. He may have low immunoglobulins, do to his underlying malignancy and treatment. I will check immunoglobulin levels. If his infection is not responding optimally to antibiotics, he may benefit from IVIG infusions, if immunoglobulin levels are low. Current Visit: Yes Status: Acute Code(s): H60.21 - MALIGNANT OTITIS EXTERNA , RIGHT EAR SNOMED Code(s): 02261783 (2) B-cell lymphoma Narrative/Plan: the patient has been treated with chemotherapy at [facility], and involved field radiation at [facility]. He is currently followed by Dr. Magdaleno from radiation oncology. He has no evidence of recurrence. Continue follow-up with Dr. Magdaleno post discharge Current Visit: No Status: Chronic Priority: Medium Code(s): C85.10 - UNSPECIFIED B-CELL LYMPHOMA, UNSPECIFIED SITE SNOMED Code(s): 703780728
[2017-07-11] MEDS: VANCOMYCIN 1,500 MG in SODIUM CHLORIDE 0.9% 250 ML IVPB SCH (16:43)
--- NOTE | 2017-07-11 16:56 | P.GSCN ---
History of Present Illness Consult date: 07/11/17 Reason for Consult: Right ear pain for 3 weeks Requesting physician: Antonio Purdy History of present illness: Pt is a 72 year old white male with a 3 week history of right ear pain and tenderness and hearing loss. Pt came back from [place] where he did do a large amount of swimming. He was trailed on zithromax and amoxil with no improvement. He complains of right sided ear tenderness and hearing loss. No bloody otorrhea noted. Pt had a ct scan and no osteitis was noted. Denies facial weakness or dizziness. Review of Systems - Constitutional Reports anorexia, Denies chills, Denies fever - EENT Eyes: right as per HPI Ears, nose, mouth and throat: Reports ant. neck pain, Denies dental pain - Cardiovascular Denies chest pain - Respiratory Denies congestion - Gastrointestinal Denies belching - Genitourinary Denies discharge - Musculoskeletal Denies atrophy - Integumentary Denies acne, Denies boils - Neurological Denies balance difficulties - Psychiatric Denies anxiety - Endocrine Denies excessive sweating - Hematologic/Lymphatic Reports as per HPI - Allergic/Immunologic Reports as per HPI Past Medical History Past Medical History: Cancer, Chest Pain / Angina, CVA/TIA, Diabetes Mellitus, Hypertension, Thyroid Disorder Additional Past Medical History / Comment(s): Peripheral neuropathy, B-Cell Lymphoma-, DENIES RENAL DISEASE History of Any Multi-Drug Resistant Organisms: None Reported Past Surgical History: Bowel Resection, Cholecystectomy, Heart Catheterization With Stent, Hernia Repair Additional Past Surgical History / Comment(s): Whipple procedure, SPLEEN REMOVED AND 1/2 OF PANCREAS REMOVED ,colonoscopy, bowel sx d/t obstruction, heart cath w/2 stents. Past Anesthesia/Blood Transfusion Reactions: No Reported Reaction Date of Last Stent Placement:: 2015 Smoking Status: Former smoker - Past Family History Mother Family Medical History: Cancer Additional Family Medical History / Comment(s): Lung Father Family Medical History: Cancer Additional Family Medical History / Comment(s): Lung Sister(s) Family Medical History: Cancer Additional Family Medical History / Comment(s): Breast Medications and Allergies Home Medications Medication Instructions Recorded Confirmed Type Insulin Glargine [Lantus] 30 unit SQ DAILY 06/06/14 07/10/17 History Losartan/Hydrochlorothiazide 1 tab PO DAILY 06/06/14 07/10/17 History [Hyzaar 100-25 Tablet] INSULIN LISPRO (humaLOG) [humaLOG] See Protocol SQ TID 07/25/16 07/10/17 History Azithromycin [Zithromax Z-pack] See Taper PO DAILY 07/10/17 07/10/17 History Levothyroxine Sodium [Synthroid] 250 mcg PO DAILY 07/10/17 07/10/17 History Allergies Allergy/AdvReac Type Severity Reaction Status Date / Time codeine AdvReac Confusion Verified 07/10/17 21:16 gabapentin [From Neurontin] AdvReac Confusion Verified 07/10/17 21:16 Surgical - Exam Osteopathic Statement: *. No significant issues noted on an osteopathic structural exam other than those noted in the History and Physical/Consult. Vital Signs Temp Pulse Resp BP Pulse Ox 98.3 F 80 18 149/69 96 07/10/17 15:08 07/10/17 15:08 07/10/17 15:08 07/10/17 15:08 07/10/17 15:08 - General well developed, well nourished, no distress - Eyes PERRL, normal ocular movement - ENT Right canal is swollen and has right tragal tenderness, No blood is seen No granulations noted. normal mucosa, no no hearing loss, no congestion - Neck no masses, no bruits, trachea midline - Respiratory normal expansion - Abdomen Abdomen: soft - Neurologic normal coordination, normal sensation - Musculoskeletal normal gait, normal posture - Psychiatric oriented to time, oriented to person, oriented to place, speech is normal, memory intact Results - Labs 07/10/17 15:49 07/10/17 15:49 Abnormal Lab Results - Last 24 Hours (Table) 07/10/17 07/11/17 07/11/17 Range/Units 20:37 07:08 12:29 POC Glucose (mg/dL) 282 H 213 H 314 H (75-99) mg/dL Microbiology - Last 24 Hours (Table) 07/11/17 00:01 Gram Stain - Preliminary Ear - Right Ear Culture - Preliminary Assessment and Plan (1) Acute otitis externa of right ear Current Visit: Yes Status: Acute Code(s): H60.501 - UNSPECIFIED ACUTE NONINFECTIVE OTITIS EXTERNA, RIGHT EAR SNOMED Code(s): 19685270 Plan: Pt has no evidence of granulation tissue in the right ear canal. Review of the CT scan does NOT show osteitis of the ear canal. Therefore this appears to be a severe case of acute otitis externa. Ototopical drops such as ciprodex and oral cipro 750 mg BID is recommended as an outpatient. Pt is to follow up with me on an outpt basis after discharge. The two most common organisms associated with this condition is pseudomonas and staph aureus. Pt is to be treated with a NSAID for the pain. Helpful if pt rests with head elevated. Time with Patient: Greater than 30
[2017-07-11] MEDS ORDERED: diphenhydrAMINE 50 MG CAP PO PRN (17:14)
[2017-07-11 17:23] LABS: Glucose,Whole Blood 313 mg/dL (75-99)
[2017-07-11] MEDS ORDERED: LEVOFLOXACIN 750MG-D5W PMX 750 MG in DEXTROSE/WATER 1 150ML.BAG IVPB SCH (18:00)
[2017-07-11 19:05] LABS: Hemoglobin A1C 10.4 % (4.0-6.0)
[2017-07-11] MEDS: CIPROFLOXACIN-DEXAMETH 0.3-0.1% DROPS 7.5 ML BTL RIGHT EAR SCH (20:27)
[2017-07-11 20:42] LABS: Glucose,Whole Blood 200 mg/dL (75-99)
--- NOTE | 2017-07-11 22:15 | PN ---
PROGRESS NOTE DATE OF SERVICE: 07/11/2017 This 72-year-old gentleman was admitted with otitis externa. ENT, Dr. Brown, has seen the patient and recommended antibiotics. Dr. Dela Cruz has also seen the patient. No chest pain. No palpitations. No fever. On exam, alert and oriented x3. Pulse 65, blood pressure 152/72, respiration 16, temperature 97.4, pulse ox 94% on room air. HEENT: Conjunctivae normal. NECK: No jugular venous distention. CARDIOVASCULAR SYSTEM: S1, S2 muffled. RESPIRATORY SYSTEM: Breath sounds diminished at the bases. No rhonchi. No crackles. ABDOMEN: Soft, non-tender. LEGS: No edema. No swelling. NERVOUS SYSTEM: No focal deficit.. EXAMINATION OF THE RIGHT EAR: Pain and swelling present. Slightly better compared to yesterday. ASSESSMENT: 1. Acute severe otitis externa, right ear canal, with failure of outpatient treatment. 2. Diabetes mellitus, type 2. 3. History of cerebrovascular accident, transient ischemic attack. 4. Hypertension. 5. Hypothyroidism. 6. History of peripheral neuropathy. 7. History of B-cell lymphoma. 8. History of cholecystectomy. RECOMMENDATIONS AND DISCUSSION: I recommend to continue medication, continue symptomatic treatment. Continue with IV antibiotics. Infectious disease and ENT input appreciated. There seems to be no evidence of any malignant external otitis at this time. Will continue to monitor. Prognosis guarded. Further recommendations to follow. Continue the IV antibiotics. See orders for further details. MMODL / IJN: [id number] /
[2017-07-12] MEDS: PIPERACILLIN-TAZOBACTAM 3.375 GM in DEXTROSE/WATER 1 50ML.BAG IVPB SCH ×3 (04:13→20:34)
[2017-07-12] MEDS: LEVOTHYROXINE 125 MCG TAB PO SCH (05:32)
[2017-07-12] MEDS ORDERED: ONDANSETRON 4 MG/2 ML VIAL IVP PRN (06:22)
[2017-07-12 07:01] LABS: Glucose,Whole Blood 226 mg/dL (75-99)
[2017-07-12] MEDS: PANTOPRAZOLE 40 MG TABLET PO SCH (08:27)
[2017-07-12] MEDS: INSULIN ASPART 100 UNIT/ML 1 ML 10 ML VIAL SQ SCH ×4 (08:27→21:35)
[2017-07-12] MEDS: HEPARIN SODIUM,PORCINE 5,000 UNIT/ML 1 ML VIAL SQ SCH ×2 (08:28→20:35)
[2017-07-12] MEDS: LOSARTAN-HCTZ 50-12.5 MG 1 EACH TAB PO SCH (08:28)
[2017-07-12] MEDS: CIPROFLOXACIN-DEXAMETH 0.3-0.1% DROPS 7.5 ML BTL RIGHT EAR SCH ×3 (08:28→21:35)
[2017-07-12] MEDS: VANCOMYCIN 1,500 MG in SODIUM CHLORIDE 0.9% 250 ML IVPB SCH ×2 (08:29→09:50)
[2017-07-12] MEDS: INSULIN DETEMIR 100 UNIT/ML 10 ML VIAL SQ SCH (09:11)
[2017-07-12] MEDS ORDERED: hydrOXYzine PAMOATE 25 MG CAP PO PRN (09:12)
[2017-07-12 09:26] LABS: Basophils # (A) 0.1 k/uL (0-0.2); Basophils % (A) 1 %; Eosinophils # (A) 0.2 k/uL (0-0.7); Eosinophils % (A) 3 %; HCT 38.8 % (39.0-53.0); HGB 12.9 gm/dL (13.0-17.5); Lymphocytes % (A) 17 %; MCH 32.2 pg (25.0-35.0); MCHC 33.2 g/dL (31.0-37.0); MCV 97.1 fL (80.0-100.0); Mean Platelet Volume 7.9; Monocytes # (A) 0.5 k/uL (0-1.0); Monocytes % (A) 9 %; Neutrophils # (A) 3.9 k/uL (1.3-7.7); Neutrophils % (A) 68 %; Platelet Count 317 k/uL (150-450); RDW 14.2 % (11.5-15.5); WBC 5.7 k/uL (3.8-10.6)
[2017-07-12 09:52] LABS: Potassium 4.1 mmol/L (3.5-5.1)
[2017-07-12 12:33] LABS: Glucose,Whole Blood 379 mg/dL (75-99)
--- NOTE | 2017-07-12 13:37 | PN ---
PROGRESS NOTE DATE OF SERVICE: 07/12/2017 REASON FOR FOLLOWUP: Right otitis externa. INTERVAL HISTORY: The patient is afebrile. Overall pain to the right externa has improved, no drainage. Denies having any chest pain, shortness of breath or cough. No abdominal pain. Did have some itching with vancomycin yesterday. Currently refusing to take anymore of the vancomycin IV. PHYSICAL EXAMINATION: On examination, blood pressure 150/73 with a pulse of 57, temperature 98.3. He is 97% on room air. General description is an elderly male lying in bed in no distress. HEENT EXAMINATION: currently with no swelling, no redness or any drainage. LUNGS: Unlabored breathing, clear to auscultation anteriorly. HEART: S1, S2. Regular rate and rhythm. ABDOMEN: Soft, no tenderness. LABS: Hemoglobin is 12.9, white count 5.7, BUN of 24, creatinine 1.20. The ear culture currently pending. DIAGNOSTIC IMPRESSION AND PLAN: Patient with malignant otitis externa. Culture showing many gram-negative with budding yeast. Will wait for those cultures to finalize to determine discharge antibiotic. Keep the patient on Zosyn and Vanco along with Vistaril for at least another 24 hours. Continue with supportive care condition. MMODL / IJN: [id number] /
[2017-07-12] MEDS: IBUPROFEN 600 MG TAB PO PRN (14:41)
[2017-07-12 15:00] VITALS: BMI 29.9
--- NOTE | 2017-07-12 16:07 | PN ---
PROGRESS NOTE DATE OF SERVICE: 07/12/2017 This 72-year-old gentleman who was admitted with acute severe external otitis is on broad-spectrum IV antibiotics. No chest pain. No palpitations. No fever. Infectious Disease and ENT are following the patient. No shortness of breath. On exam, alert and oriented x3. Pulse 75, blood pressure 151/77, respiration 16, temperature 97.9, pulse ox 94% on room air. HEENT: Conjunctivae normal. NECK: No jugular venous distention. CARDIOVASCULAR SYSTEM: S1, S2 muffled. RESPIRATORY SYSTEM: Breath sounds diminished at the bases. A few scattered rhonchi. No crackles. ABDOMEN: Soft, non-tender. LEGS: No edema. No swelling. NERVOUS SYSTEM: No focal deficit. EXAMINATION OF THE RIGHT EAR: Slightly tender. Swelling is reduced much. LABS: WBC 5.7, hemoglobin 12.9. Glucose 354 and 379. ASSESSMENT: 1. Acute severe otitis externa, right ear canal, with failure of outpatient treatment. 2. Diabetes mellitus, type 2. 3. History of cerebrovascular accident, transient ischemic attack. 4. Hypertension. 5. Hypothyroidism. 6. History of peripheral neuropathy. 7. History of B-cell lymphoma. 8. History of cholecystectomy. RECOMMENDATIONS AND DISCUSSION: I recommend to continue current medication, continue symptomatic treatment. Otherwise, continue with the broad-spectrum IV antibiotics. Hemoglobin A1c is 10.4. I would increase the dose of Lantus and continue to monitor. Further recommendations to follow. MMODL / IJN: [id number] /
[2017-07-12 17:57] LABS: Glucose,Whole Blood 281 mg/dL (75-99)
[2017-07-12] MEDS ORDERED: INSULIN DETEMIR 100 UNIT/ML 10 ML VIAL SQ SCH (21:00)
[2017-07-12 21:13] LABS: Glucose,Whole Blood 314 mg/dL (75-99)
[2017-07-13] MEDS: VANCOMYCIN 1,500 MG in SODIUM CHLORIDE 0.9% 250 ML IVPB SCH (00:41)
[2017-07-13] MEDS: PIPERACILLIN-TAZOBACTAM 3.375 GM in DEXTROSE/WATER 1 50ML.BAG IVPB SCH ×2 (04:24→13:25)
[2017-07-13] MEDS: LEVOTHYROXINE 125 MCG TAB PO SCH (06:22)
[2017-07-13 07:24] LABS: Glucose,Whole Blood 318 mg/dL (75-99)
[2017-07-13] MEDS: LOSARTAN-HCTZ 50-12.5 MG 1 EACH TAB PO SCH (07:56)
[2017-07-13] MEDS: PANTOPRAZOLE 40 MG TABLET PO SCH (07:56)
[2017-07-13] MEDS: HEPARIN SODIUM,PORCINE 5,000 UNIT/ML 1 ML VIAL SQ SCH ×2 (07:56→21:22)
[2017-07-13] MEDS: CIPROFLOXACIN-DEXAMETH 0.3-0.1% DROPS 7.5 ML BTL RIGHT EAR SCH ×3 (07:56→21:22)
[2017-07-13] MEDS: IBUPROFEN 600 MG TAB PO PRN ×3 (07:57→21:21)
[2017-07-13] MEDS: INSULIN DETEMIR 100 UNIT/ML 10 ML VIAL SQ SCH ×2 (07:57→21:23)
[2017-07-13] MEDS: INSULIN ASPART 100 UNIT/ML 1 ML 10 ML VIAL SQ SCH ×4 (07:57→21:23)
[2017-07-13 09:28] LABS: Basophils # (A) 0.1 k/uL (0-0.2); Basophils % (A) 1 %; Eosinophils # (A) 0.2 k/uL (0-0.7); Eosinophils % (A) 3 %; HCT 38.9 % (39.0-53.0); HGB 12.5 gm/dL (13.0-17.5); Lymphocytes % (A) 16 %; MCH 31.2 pg (25.0-35.0); MCHC 32.1 g/dL (31.0-37.0); MCV 97.1 fL (80.0-100.0); Mean Platelet Volume 8.1; Monocytes # (A) 0.6 k/uL (0-1.0); Monocytes % (A) 10 %; Neutrophils % (A) 67 %; Platelet Count 317 k/uL (150-450); RDW 14.1 % (11.5-15.5)
[2017-07-13 09:35] LABS: Potassium 4.3 mmol/L (3.5-5.1)
[2017-07-13 12:19] LABS: Glucose,Whole Blood 299 mg/dL (75-99)
--- NOTE | 2017-07-13 15:02 | PN ---
PROGRESS NOTE DATE OF SERVICE: 07/13/2017. REASON FOR FOLLOWUP: Right otitis externa, pseudomonas aeruginosa. INTERVAL HISTORY: The patient is afebrile, was complaining of feeling much better yesterday, complaining of not feeling as good today. Pain is about the same. No drainage from the ear though. Denies any chest pain, shortness of breath or cough. No abdominal pain. No diarrhea. EXAMINATION: Blood pressure is 132/73 with a pulse of 74, temperature 97.5 he is 96% on room air. General description is an elderly male lying in bed in no distress. HEENT examination: Right external ear is currently no swelling. No redness or any drainage. Lungs unlabored breathing. Clear to auscultation anteriorly. Heart S1, S2. Regular rate and rhythm. Abdomen soft, no tenderness. EXTREMITIES: No edema of the feet. LABS: Hemoglobin 12.5, white count 6.0, BUN of 27, creatinine 1.22. Wound culture finalized with Pseudomonas aeruginosa and species, pseudomonas is sensitive pathogen. DIAGNOSTIC IMPRESSION AND PLAN: Patient with right otitis externa. Culture positive for Pseudomonas aeruginosa. The patient has been on Zosyn, adjusted to Fortaz as the organism is sensitive to Cipro. Plan will be for Cipro 750 twice a day for 2 weeks. Continue supportive care. MMODL / IJN: [id number] /
[2017-07-13] MEDS: FLUCONAZOLE 100 MG TAB PO SCH (16:34)
[2017-07-13 16:56] LABS: Glucose,Whole Blood 356 mg/dL (75-99)
--- NOTE | 2017-07-13 17:46 | P.PN ---
Subjective Progress Note Date: 07/13/17 Principal diagnosis: Otitis Media Patient seen and evaluated in Follow-up today, No acute events. Positive gram Negative Bacilli and Yeast Ear Objective - Vital Signs Vital signs: Vital Signs Temp 97.4 F L 07/13/17 15:33 Pulse 71 07/13/17 15:33 Resp 16 07/13/17 15:33 BP 141/79 07/13/17 15:33 Pulse Ox 97 07/13/17 15:33 Intake & Output 07/12/17 07/13/17 07/13/17 18:59 06:59 18:59 Intake Total 440 1350 440 Output Total 800 300 600 Balance -360 1050 -160 Weight 81.647 kg Intake: Oral 440 1350 440 Output: Urine 800 300 600 Other: Voiding Method Toilet # Voids 1 # Bowel Movements 0 0 - Constitutional General appearance: Present: cooperative, no acute distress - EENT EENT Comment(s): Swelling and tenderness involving the right upper neck and right side of face anterior to ear Eyes: Present: EOMI, PERRLA ENT: Present: hard of hearing, pharyngeal erythema - Respiratory Respiratory: bilateral: CTA - Cardiovascular Rhythm: regular Heart sounds: normal: S1, S2 - Gastrointestinal General gastrointestinal: Present: normal bowel sounds, soft - Integumentary Integumentary: Present: normal - Neurologic Neurologic: Present: CNII-XII intact - Musculoskeletal Musculoskeletal: Present: generalized weakness, strength equal bilaterally - Psychiatric Psychiatric: Present: A&O x's 3, appropriate affect, intact judgment & insight - Labs CBC & Chem 7: 07/13/17 08:56 07/13/17 08:56 Labs: Abnormal Lab Results - Last 24 Hours (Table) 07/12/17 07/12/17 07/13/17 Range/Units 17:43 21:04 07:19 RBC (4.30-5.90) m/uL Hgb (13.0-17.5) gm/dL Hct (39.0-53.0) % BUN (9-20) mg/dL Glucose (74-99) mg/dL POC Glucose (mg/dL) 281 H 314 H 318 H (75-99) mg/dL 07/13/17 07/13/17 07/13/17 Range/Units 08:56 08:56 12:18 RBC 4.00 L (4.30-5.90) m/uL Hgb 12.5 L (13.0-17.5) gm/dL Hct 38.9 L (39.0-53.0) % BUN 27 H (9-20) mg/dL Glucose 349 H (74-99) mg/dL POC Glucose (mg/dL) 299 H (75-99) mg/dL 07/13/17 Range/Units 16:54 RBC (4.30-5.90) m/uL Hgb (13.0-17.5) gm/dL Hct (39.0-53.0) % BUN (9-20) mg/dL Glucose (74-99) mg/dL POC Glucose (mg/dL) 356 H (75-99) mg/dL Microbiology - Last 24 Hours (Table) 07/11/17 00:01 Gram Stain - Preliminary Ear - Right Ear Culture - Preliminary Pseudomonas aeruginosa Yeast species Assessment and Plan Plan: Assessment and Plan (1) Malignant otitis externa of right ear Narrative/Plan: The patient is presented with severe otitis externa, that has failed outpatient treatment. He is currently on IV antibiotics. This does not appear to be directly related in any way to his history of malignancy. He has not had any systemic therapy for several months and his counts are within the normal range. He may have low immunoglobulins, do to his underlying malignancy and treatment. - I will check immunoglobulin levels. If his infection is not responding optimally to antibiotics, he may benefit from IVIG infusions, if immunoglobulin levels are low. Current Visit: Yes Status: Acute Code(s): H60.21 - MALIGNANT OTITIS EXTERNA , RIGHT EAR SNOMED Code(s): 22926917 (2) B-cell lymphoma Narrative/Plan: the patient has been treated with chemotherapy at [facility], and involved field radiation at [facility]. He is currently followed by Dr. Magdaleno from radiation oncology. He has no evidence of recurrence. Continue follow-up with Dr. Magdaleno post discharge Current Visit: No Status: Chronic Priority: Medium Code(s): C85.10 - UNSPECIFIED B-CELL LYMPHOMA, UNSPECIFIED SITE SNOMED Code(s): 377442640 Physician Attestation: I have completed the full history and physical of this patient and agree with above dictation by Pily Capellan NP, Dictated as a scribe.
--- NOTE | 2017-07-13 18:37 | P.PN ---
Subjective Progress Note Date: 07/13/17 Principal diagnosis: Acute otitis externa, right Pt was doing better but now has increasing ear pain on the right which he describes as mild/moderate. No otorrhea. Objective - Vital Signs Vital signs: Vital Signs Temp 97.4 F L 07/13/17 15:33 Pulse 71 07/13/17 15:33 Resp 16 07/13/17 15:33 BP 141/79 07/13/17 15:33 Pulse Ox 97 07/13/17 15:33 Intake & Output 07/12/17 07/13/17 07/13/17 18:59 06:59 18:59 Intake Total 440 1350 440 Output Total 800 300 600 Balance -360 1050 -160 Weight 81.647 kg Intake: Oral 440 1350 440 Output: Urine 800 300 600 Other: Voiding Method Toilet # Voids 1 # Bowel Movements 0 0 - Constitutional General appearance: Present: average body habitus - EENT EENT Comment(s): Right ear canal red, with yeast noted ENT: Present: hard of hearing - Musculoskeletal Musculoskeletal: Present: gait normal - Psychiatric Psychiatric: Present: A&O x's 3, appropriate affect - Labs CBC & Chem 7: 07/13/17 08:56 07/13/17 08:56 Labs: Abnormal Lab Results - Last 24 Hours (Table) 07/12/17 07/13/17 07/13/17 Range/Units 21:04 07:19 08:56 RBC 4.00 L (4.30-5.90) m/uL Hgb 12.5 L (13.0-17.5) gm/dL Hct 38.9 L (39.0-53.0) % BUN (9-20) mg/dL Glucose (74-99) mg/dL POC Glucose (mg/dL) 314 H 318 H (75-99) mg/dL 07/13/17 07/13/17 07/13/17 Range/Units 08:56 12:18 16:54 RBC (4.30-5.90) m/uL Hgb (13.0-17.5) gm/dL Hct (39.0-53.0) % BUN 27 H (9-20) mg/dL Glucose 349 H (74-99) mg/dL POC Glucose (mg/dL) 299 H 356 H (75-99) mg/dL Microbiology - Last 24 Hours (Table) 07/11/17 00:01 Gram Stain - Preliminary Ear - Right Ear Culture - Preliminary Pseudomonas aeruginosa Yeast species Assessment and Plan (1) Acute otitis externa of right ear Current Visit: Yes Status: Acute Code(s): H60.501 - UNSPECIFIED ACUTE NONINFECTIVE OTITIS EXTERNA, RIGHT EAR SNOMED Code(s): 04034003 (2) Acute mycotic otitis externa Current Visit: Yes Status: Acute Code(s): B36.9 - SUPERFICIAL MYCOSIS, UNSPECIFIED; H62.40 - OTITIS EXTERNA IN OTH DISEASES CLASSD ELSWHR, UNSP EAR SNOMED Code(s): 544486601 Plan: Pts ear infection has turned fungal, Lotrimin solution is to be added if pharmacy can aquire. If not, we will use an acidifying drop. Pt needs an ear cleaning which would be best done on an outpatient basis. Prefer pt to be seen by me in the office where I can do an ear cleaning and insert a wick Time with Patient: Greater than 30
[2017-07-13] MEDS: NEOMYCIN-POLYMYXIN-HC (3.5-10,000-10 MG) OTIC DROPS 10 ML BTL RIGHT EAR SCH ×2 (19:36→20:54)
--- NOTE | 2017-07-13 20:08 | PN ---
PROGRESS NOTE DATE OF SERVICE: 07/13/2017 This 72-year-old gentleman who was admitted with acute severe otitis externa is being closely monitored. No chest pain. No palpitations. No fever. PHYSICAL EXAMINATION: Alert and oriented x3. Pulse 71, blood pressure 141/79, respiration 16, temperature 97.4, pulse ox 97% on room air. HEENT: Conjunctivae normal. Oral mucosa moist. NECK: No jugular venous distention. No carotid bruit. No lymph node enlargement. CARDIOVASCULAR SYSTEM: S1, S2 muffled. No S3. No S4. RESPIRATORY SYSTEM: Breath sounds diminished at the bases. A few scattered rhonchi. No crackles. ABDOMEN: Soft, nontender. LEGS: No edema. No swelling. EXAMINATION OF THE RIGHT EAR: Otitis externa present. LABS: WBC 6, hemoglobin 12.5, glucose 356. ASSESSMENT: 1. Acute severe otitis externa, right ear canal, with failure of outpatient treatment. 2. Diabetes mellitus, type 2. 3. History of cerebrovascular accident, transient ischemic attack. 4. Hypertension. 5. Hypothyroidism. 6. History of peripheral neuropathy. 7. History of B-cell lymphoma. 8. History of cholecystectomy. RECOMMENDATIONS AND DISCUSSION: I recommend to continue current medication, continue with the monitoring, symptomatic treatment. Otherwise at this time I would recommend continuing with IV antibiotics and closely follow with ENT as well as Infectious Disease. Further recommendations to follow. MMODL / IJN: [id number] /
[2017-07-13] MEDS ORDERED: INSULIN DETEMIR 100 UNIT/ML 10 ML VIAL SQ SCH (21:00)
[2017-07-13 21:09] LABS: Glucose,Whole Blood 185 mg/dL (75-99)
[2017-07-14] MEDS: LEVOTHYROXINE 125 MCG TAB PO SCH (06:33)
[2017-07-14 07:23] LABS: Glucose,Whole Blood 235 mg/dL (75-99)
[2017-07-14] MEDS: INSULIN ASPART 100 UNIT/ML 1 ML 10 ML VIAL SQ SCH ×7 (07:55→20:58)
[2017-07-14] MEDS: IBUPROFEN 600 MG TAB PO PRN ×2 (07:56→17:51)
[2017-07-14] MEDS: CIPROFLOXACIN-DEXAMETH 0.3-0.1% DROPS 7.5 ML BTL RIGHT EAR SCH ×3 (07:57→20:52)
[2017-07-14] MEDS: NEOMYCIN-POLYMYXIN-HC (3.5-10,000-10 MG) OTIC DROPS 10 ML BTL RIGHT EAR SCH ×4 (07:57→20:52)
[2017-07-14] MEDS: PANTOPRAZOLE 40 MG TABLET PO SCH (07:57)
[2017-07-14] MEDS: FLUCONAZOLE 100 MG TAB PO SCH (07:57)
[2017-07-14] MEDS: HEPARIN SODIUM,PORCINE 5,000 UNIT/ML 1 ML VIAL SQ SCH ×2 (07:57→20:51)
[2017-07-14] MEDS: LOSARTAN-HCTZ 50-12.5 MG 1 EACH TAB PO SCH (07:58)
[2017-07-14] MEDS: INSULIN DETEMIR 100 UNIT/ML 10 ML VIAL SQ SCH ×2 (08:06→20:59)
[2017-07-14 08:41] LABS: Calcium 9.2 mg/dL (8.4-10.2); Potassium 4.3 mmol/L (3.5-5.1)
[2017-07-14 08:43] LABS: Basophils # (A) 0.1 k/uL (0-0.2); Basophils % (A) 1 %; Eosinophils # (A) 0.2 k/uL (0-0.7); Eosinophils % (A) 3 %; HCT 38.7 % (39.0-53.0); HGB 12.6 gm/dL (13.0-17.5); Lymphocytes # (A) 1.3 k/uL (1.0-4.8); Lymphocytes % (A) 22 %; MCH 31.3 pg (25.0-35.0); MCHC 32.5 g/dL (31.0-37.0); MCV 96.5 fL (80.0-100.0); Mean Platelet Volume 8.4; Monocytes # (A) 0.7 k/uL (0-1.0); Monocytes % (A) 12 %; Neutrophils # (A) 3.4 k/uL (1.3-7.7); Neutrophils % (A) 59 %; Platelet Count 314 k/uL (150-450); RBC 4.01 m/uL (4.30-5.90); RDW 13.9 % (11.5-15.5); WBC 5.8 k/uL (3.8-10.6)
[2017-07-14 11:50] LABS: Glucose,Whole Blood 346 mg/dL (75-99)
[2017-07-14 12:15] LABS: Immunoglobulin M 21.9 mg/dL (40.0-280.0)
--- NOTE | 2017-07-14 14:03 | PN ---
PROGRESS NOTE DATE OF SERVICE: 07/14/2017 REASON FOR FOLLOWUP: Right otitis externa pseudomonas aeruginosa. INTERVAL HISTORY: The patient is afebrile. He is feeling much better. Did mention he has been almost 50% better. No drainage from the right ear. Denies having any chest pain, shortness of breath, no cough, no abdominal pain. No diarrhea. PHYSICAL EXAMINATION: Blood pressure 107/53, pulse of 62, temperature 97.7, he is 98% on room air. GENERAL DESCRIPTION: An elderly male lying in bed in no distress. RESPIRATORY SYSTEM: Unlabored breathing, clear to auscultation anteriorly. HEART: S1, S2. Regular rate and rhythm. ABDOMEN: Soft, no tenderness. LABS: Hemoglobin 12.3, white count of 5.8, BUN of 27, creatinine 1.23. DIAGNOSTIC IMPRESSION AND PLAN: Patient with right otitis externa. Culture positive for Pseudomonas and yeast. Currently on Fortaz and Diflucan, switching him to oral Cipro and Diflucan for another 10 days to 2 weeks to finish his therapy. Continue supportive care. MMODL / IJN: [id number] /
[2017-07-14 17:22] LABS: Glucose,Whole Blood 238 mg/dL (75-99)
--- NOTE | 2017-07-14 19:12 | PN ---
PROGRESS NOTE DATE OF SERVICE: 07/14/2017 This 72-year-old gentleman who was admitted with acute severe otitis externa is improving significantly. Patient also had fungal as well as pseudomonas grown from the culture. No chest pain. No palpitations. ENT and Dr. Dela Cruz are following the patient closely. On exam, alert and oriented x3. Pulse is 63, blood pressure 147/75, respiration 16, temperature 97.2, pulse ox 94% on room air. HEENT: Conjunctivae normal. NECK: No jugular venous distention. CARDIOVASCULAR SYSTEM: S1, S2 muffled. RESPIRATORY SYSTEM: Breath sounds diminished at the bases. A few scattered rhonchi and crackles. ABDOMEN: Soft, non-tender. No mass palpable. LEGS: No edema. No swelling. NERVOUS SYSTEM: No focal deficit. EXAMINATION OF THE RIGHT EAR: External otitis, which is improving at this time. LABS: WBC 5.8, hemoglobin 12.6, glucose 346. ASSESSMENT: 1. Acute severe otitis externa, right ear canal, with failure of outpatient treatment. 2. Diabetes mellitus, type 2. 3. History of cerebrovascular accident, transient ischemic attack. 4. Hypertension. 5. Hypothyroidism. 6. History of peripheral neuropathy. 7. History of B-cell lymphoma. 8. History of cholecystectomy. RECOMMENDATIONS AND DISCUSSION: I recommend to continue current medication, continue with the monitoring, symptomatic treatment. Otherwise at this time we will continue with antibiotics. Guarded prognosis because of multiple complex medical issues. Further recommendations to follow. MMODL / IJN: [id number] /
[2017-07-14 20:44] LABS: Glucose,Whole Blood 275 mg/dL (75-99)
[2017-07-15] MEDS: LEVOTHYROXINE 125 MCG TAB PO SCH (06:30)
[2017-07-15 06:49] LABS: Glucose,Whole Blood 199 mg/dL (75-99)
[2017-07-15] MEDS: PANTOPRAZOLE 40 MG TABLET PO SCH (07:50)
[2017-07-15] MEDS: FLUCONAZOLE 100 MG TAB PO SCH (07:51)
[2017-07-15] MEDS: HEPARIN SODIUM,PORCINE 5,000 UNIT/ML 1 ML VIAL SQ SCH ×2 (07:51→20:35)
[2017-07-15] MEDS: NEOMYCIN-POLYMYXIN-HC (3.5-10,000-10 MG) OTIC DROPS 10 ML BTL RIGHT EAR SCH ×4 (07:51→20:35)
[2017-07-15] MEDS: CIPROFLOXACIN-DEXAMETH 0.3-0.1% DROPS 7.5 ML BTL RIGHT EAR SCH ×3 (07:51→20:35)
[2017-07-15] MEDS: LOSARTAN-HCTZ 50-12.5 MG 1 EACH TAB PO SCH (07:51)
[2017-07-15] MEDS: INSULIN ASPART 100 UNIT/ML 1 ML 10 ML VIAL SQ SCH ×7 (07:59→20:39)
[2017-07-15] MEDS: INSULIN DETEMIR 100 UNIT/ML 10 ML VIAL SQ SCH ×2 (08:00→20:36)
[2017-07-15 08:14] LABS: Basophils # (A) 0.1 k/uL (0-0.2); Basophils % (A) 1 %; Eosinophils # (A) 0.2 k/uL (0-0.7); Eosinophils % (A) 4 %; HGB 12.6 gm/dL (13.0-17.5); Lymphocytes # (A) 1.2 k/uL (1.0-4.8); Lymphocytes % (A) 21 %; MCHC 32.3 g/dL (31.0-37.0); MCV 96.1 fL (80.0-100.0); Mean Platelet Volume 8.1; Monocytes # (A) 0.7 k/uL (0-1.0); Monocytes % (A) 13 %; Neutrophils # (A) 3.2 k/uL (1.3-7.7); Neutrophils % (A) 58 %; Platelet Count 314 k/uL (150-450); RBC 4.05 m/uL (4.30-5.90); RDW 13.8 % (11.5-15.5); WBC 5.6 k/uL (3.8-10.6)
[2017-07-15 08:22] LABS: Calcium 9.5 mg/dL (8.4-10.2); Potassium 4.4 mmol/L (3.5-5.1)
[2017-07-15 12:40] LABS: Glucose,Whole Blood 196 mg/dL (75-99)
--- NOTE | 2017-07-15 13:34 | PN ---
PROGRESS NOTE DATE OF SERVICE: 07/15/2017. REASON FOR FOLLOWUP: Right otitis externa Pseudomonas aeruginosa. INTERVAL HISTORY: The patient is afebrile. He has mentioned he is not feeling as good as he was yesterday and pain into the right ear canal area has improved with no drainage. Denies any chest pain, shortness of breath, cough. Did mention he felt nauseated last night but no vomiting. EXAMINATION: Blood pressure 143/71 with a pulse of 67, temperature 97.5. He is 95% on room air. General description is an elderly male lying in bed in no distress. HEENT examination: No swelling or tenderness in the right external ear. was noticed. No drainage. LUNGS: Unlabored breathing, clear to auscultation anteriorly. HEART: S1, S2. Regular rate and rhythm. ABDOMEN: Soft. No tenderness. LABS: Hemoglobin is 12.2, white count 5.6, BUN of 26, creatinine 1.11. DIAGNOSTIC IMPRESSION AND PLAN: Patient with right otitis externa with Pseudomonas aeruginosa and Michelle. Currently covered with Fortaz and Diflucan with a plan to finish therapy with oral Cipro and Diflucan. Script has already been sent to the pharmacy and close outpatient followup. MMODL / IJN: [id number] /
--- NOTE | 2017-07-15 16:22 | PN ---
PROGRESS NOTE DATE OF SERVICE: 07/15/2017 This 72-year-old gentleman who was admitted with severe otitis externa with failure of outpatient treatment had pseudomonas and michelle grown from the culture. Patient is on broad spectrum IV antibiotics. The patient also had an ENT evaluation on Monday morning. At this time no chest pain, no palpitation, no fever. On exam, alert and oriented x3. Pulse 68, blood pressure 144/76, respiration 16, temperature 97.2, pulse ox 94% on room air. HEENT: Conjunctivae normal. NECK: No jugular venous distention. CARDIOVASCULAR SYSTEM: S1, S2 muffled. RESPIRATORY SYSTEM: Breath sounds diminished at the bases. No rhonchi. No crackles. ABDOMEN: Soft, non-tender. No mass palpable. LEGS: No edema. No swelling. NERVOUS SYSTEM: No focal deficit. EXAMINATION OF THE RIGHT EAR: noted. LABS: WBC 5.3, hemoglobin 12.6. ASSESSMENT: 1. Acute severe otitis externa, right ear canal, with failure of outpatient treatment with pseudomonas and Michelle parapsilosis. 2. Diabetes mellitus, type 2, uncontrolled, with hyperglycemia. 3. History of cerebrovascular accident, transient ischemic attack. 4. Hypertension. 5. Hypothyroidism. 6. History of peripheral neuropathy. 7. History of B-cell lymphoma. 8. History of cholecystectomy. RECOMMENDATIONS AND DISCUSSION: I recommend to continue current medication, continue symptomatic treatment. We will monitor the patient closely. Continue with antibiotics. Otherwise, blood sugar seems to be better controlled at this time. Continue to monitor. Further recommendations to follow. MMODL / IJN: [id number] / MTDD
[2017-07-15 16:38] LABS: Glucose,Whole Blood 203 mg/dL (75-99)
[2017-07-15 20:36] LABS: Glucose,Whole Blood 300 mg/dL (75-99)
[2017-07-16] MEDS: LEVOTHYROXINE 125 MCG TAB PO SCH (06:26)
[2017-07-16 06:40] VITALS: BP 164/83; PULSE 70; RESP 16; TEMP 98.6
[2017-07-16 07:09] LABS: Glucose,Whole Blood 303 mg/dL (75-99)
[2017-07-16] MEDS: PANTOPRAZOLE 40 MG TABLET PO SCH (07:56)
[2017-07-16] MEDS: LOSARTAN-HCTZ 50-12.5 MG 1 EACH TAB PO SCH (07:56)
[2017-07-16] MEDS: INSULIN ASPART 100 UNIT/ML 1 ML 10 ML VIAL SQ SCH ×4 (07:56→12:32)
[2017-07-16] MEDS: FLUCONAZOLE 100 MG TAB PO SCH (07:56)
[2017-07-16] MEDS: NEOMYCIN-POLYMYXIN-HC (3.5-10,000-10 MG) OTIC DROPS 10 ML BTL RIGHT EAR SCH (07:57)
[2017-07-16] MEDS: HEPARIN SODIUM,PORCINE 5,000 UNIT/ML 1 ML VIAL SQ SCH (07:57)
[2017-07-16] MEDS: CIPROFLOXACIN-DEXAMETH 0.3-0.1% DROPS 7.5 ML BTL RIGHT EAR SCH (07:57)
[2017-07-16] MEDS: INSULIN DETEMIR 100 UNIT/ML 10 ML VIAL SQ SCH (07:57)
[2017-07-16 07:58] LABS: Basophils # (A) 0.1 k/uL (0-0.2); Basophils % (A) 1 %; Eosinophils # (A) 0.2 k/uL (0-0.7); Eosinophils % (A) 3 %; HGB 13.2 gm/dL (13.0-17.5); Lymphocytes # (A) 1.2 k/uL (1.0-4.8); Lymphocytes % (A) 18 %; MCH 30.9 pg (25.0-35.0); MCHC 32.2 g/dL (31.0-37.0); MCV 95.9 fL (80.0-100.0); Mean Platelet Volume 7.9; Monocytes # (A) 0.7 k/uL (0-1.0); Monocytes % (A) 11 %; Neutrophils # (A) 4.3 k/uL (1.3-7.7); Neutrophils % (A) 65 %; Platelet Count 340 k/uL (150-450); RBC 4.28 m/uL (4.30-5.90); RDW 13.7 % (11.5-15.5); WBC 6.7 k/uL (3.8-10.6)
[2017-07-16] MEDS: IBUPROFEN 600 MG TAB PO PRN (08:04)
[2017-07-16 08:08] LABS: Calcium 9.8 mg/dL (8.4-10.2); Potassium 4.5 mmol/L (3.5-5.1)
--- NOTE | 2017-07-16 12:20 | DS ---
DISCHARGE SUMMARY DATE OF SERVICE: 07/16/2017. FINAL DIAGNOSES: 1. Acute severe otitis externa, right ear canal with failure of outpatient treatment with Pseudomonas and Michelle parapsilosis. 2. Diabetes mellitus type 2, uncontrolled with hyperglycemia. 3. History of cerebrovascular accident, transient ischemic attack. 4. Hypertension. 5. Hypothyroidism. 6. History of peripheral neuropathy. 7. History of B-cell lymphoma. 8. History of cholecystectomy. DISCHARGE DISPOSITION: The patient will be discharged in stable condition with guarded prognosis. HISTORY OF PRESENT ILLNESS: This 72-year-old gentleman with past medical history of multiple medical problems was admitted with acute severe otitis externa. The patient was treated with broad-spectrum IV antibiotics. Pseudomonas and Michelle parapsilosis grown from the culture. Infectious Disease and ENT, Dr. Brown saw the patient and recommended outpatient followup. The patient improved significantly. On exam, vitals are stable. Cardiovascular: S1, S2. Respiratory: Breath sounds diminished in the bases. Abdomen: Soft. Nervous system: No focal deficits. DISCHARGE ADVICE: 1. Diet is cardiac. 2. Activities limited until followup. 3. Follow up with Dr. Purdy in 2-3 days. 4. Follow up with Dr. Brown as advised. 5. Follow up with Dr. Dela Cruz as advised. MEDICATIONS: 1. Cipro 750 mg p.o. b.i.d. for 10 days. 2. Ciprofloxacin dexamethasone drops. 3. Diflucan 200 mg p.o. daily for 10 days. 4. Motrin 200 mg t.i.d. p.r.n. 5. Lantus 30 units subcu b.i.d. Please note increased dose. 6. Humalog scale as before. 7. Synthroid 250 mcg p.o. daily. 8. Losartan hydrochlorothiazide 1 tab p.o. daily. 9. Multivitamin 1 p.o. daily. 10.Protonix 40 mg p.o. daily. Once again, the patient will be discharged in stable condition with guarded prognosis. MMODL / IJN: [id number] /
[2017-07-16 12:28] LABS: Glucose,Whole Blood 337 mg/dL (75-99)
== END 2017-07-16 13:00 | disposition home or self-care (01) | DRG 155 ==
LOC: EC 14:14 → 4MS4W 18:04
PROVIDERS: ADMIT Internal Medicine; ATTEND Internal Medicine
DX: H60.391 Other infective otitis externa, right ear (principal); B37.84 Candidal otitis externa; C85.10 Unspecified B-cell lymphoma, unspecified site; E03.9 Hypothyroidism, unspecified; E11.42 Type 2 diabetes mellitus with diabetic polyneuropathy; E11.65 Type 2 diabetes mellitus with hyperglycemia; H91.90 Unspecified hearing loss, unspecified ear; I10 Essential (primary) hypertension; I25.10 Atherosclerotic heart disease of native coronary artery without angina pectoris; F32.9 Major depressive disorder, single episode, unspecified; F41.9 Anxiety disorder, unspecified; B96.5 Pseudomonas (aeruginosa) (mallei) (pseudomallei) as the cause of diseases classified elsewhere; Z79.4 Long term (current) use of insulin; Z79.890 Hormone replacement therapy; Z79.899 Other long term (current) drug therapy; Z95.5 Presence of coronary angioplasty implant and graft; Z92.21 Personal history of antineoplastic chemotherapy; Z90.81 Acquired absence of spleen; Z90.49 Acquired absence of other specified parts of digestive tract; Z90.411 Acquired partial absence of pancreas; Z87.891 Personal history of nicotine dependence; Z86.73 Personal history of transient ischemic attack (TIA), and cerebral infarction without residual deficits; Z88.5 Allergy status to narcotic agent; Z88.8 Allergy status to other drugs, medicaments and biological substances; Z80.1 Family history of malignant neoplasm of trachea, bronchus and lung; Z80.3 Family history of malignant neoplasm of breast
CPT/HCPCS: 36415; 70486; 70491; 80048; 80202; 82784; 83036; 85025; 87070; 87077; 87186; 87205; 96365; 99284